=== PATIENT | male | born 1960 | race American Indian/Alaskan Native ===

== ENCOUNTER 2020-12-17 13:40 | Inpatient (IN) | payer OTHER ==
[2020-12-17] MEDS ORDERED: SODIUM CHLORIDE 0.9% 1000 ML 1,000 ML IV ONE ×2 (14:29)
[2020-12-17] MEDS ORDERED: ONDANSETRON 4 MG/2 ML INJ IV ONE (14:32)
[2020-12-17] MEDS ORDERED: ONDANSETRON 4 MG/2 ML INJ ONE (14:33)
[2020-12-17] MEDS ORDERED: PANTOPRAZOLE 40 MG INJ IV ONE (14:42)
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
[2020-12-17] MEDS: PANTOPRAZOLE 80 MG in SODIUM CHLORIDE 0.9% 100 ML IV SCH (15:00)
[2020-12-17 15:10] LABS: INR 1.01 (0.87-1.13)
[2020-12-17 15:11] LABS: Partial Thromboplastin Time 24.7 Sec. (24.2-36.6)
[2020-12-17 15:17] LABS: Alanine Aminotransferase 7 units/L (7-56); Albumin 3.1 g/dL (3.9-5); BUN/Creatinine Ratio 29; Blood Urea Nitrogen 20 mg/dL (9-20); Hemolysis Index 0
[2020-12-17 15:19] LABS: Mean Corpuscular HGB Conc 30 % (32-34); Mean Corpuscular Volume 72 fl (84-94); Platelet Count 355 K/mm3 (140-440); Red Blood Count 1.41 M/mm3 (3.65-5.03)
[2020-12-17 15:21] LABS: Hemoglobin 3.1 gm/dl (11.8-15.2)
[2020-12-17 15:22] LABS: Hematocrit 10.1 % (35.5-45.6)
[2020-12-17] MEDS ORDERED: SODIUM CHLORIDE 0.9% 500 ML 500 ML IV ONE (15:45)
[2020-12-17 16:39] LABS: Anisocytosis 1+; Hypochromasia 2+; Platelet Estimate Consistent w Auto; Total Cells Counted 100
--- NOTE | 2020-12-17 17:10 | History and Physical Report ---
History of Present Illness Chief complaint: My stools are dark and have been's spitting up blood History of present illness: 60 YO Male with Malnutrition, Nicotine Dependence, GERD presents to ED for evaluation. Patient reports "my stool is dark and I have been spitting up blood". Patient states that he has experienced multiple episodes of hematemesis over the past 3 days as well as dark bloody stools. EMS was notified and upon arrival the patient was found to be in distress and subsequently transported to [facility] for further care and evaluation of the aforementioned symptoms. The patient was seen and evaluated in the emergency department. All lab and imaging studies reviewed. Patient found to be Hemoccult positive. Patient found to have clinical symptoms consistent with gastrointestinal hemorrhage. Patient treated with packed red blood cell transfusion. GI team consulted in ED. Patient pending endoscopic evaluation as per GI team. Patient denies fever, chills, chest pain, palpitation, productive cough, skin rash, recent contact, or known exposure to COVID-19. No prior admission for review. No medication listed at time of admission for reconciliation. Advanced care planning conducted in ED. Past History Past Medical History: GERD, other (See HPI) Past Surgical History: No surgical history, Other (Reviewed) Social history: , smoking. denies: alcohol abuse, prescription drug abuse Family history: hypertension Medications and Allergies Allergies Allergy/AdvReac Type Severity Reaction Status Date / Time No Known Allergies Allergy Unverified 11/15/13 19:15 Home Medications Medication Instructions Recorded Confirmed Last Taken Type HYDROcodone/APAP 5-325 [[place] 1 each PO Q6HR PRN #20 tablet 11/16/13 12/17/20 Unknown Rx 5/325] Promethazine [Phenergan] 25 mg PO Q6H PRN #20 tablet 11/16/13 12/17/20 Unknown Rx Active Meds: Active Medications Pantoprazole Sodium 80 mg/ (Sodium Chloride) 100 mls @ 10 mls/hr IV DIRECT PETER Review of Systems Constitutional: no weight loss, no weight gain, no chills, no night sweats Ears, nose, mouth and throat: no ear pain, no tinnitis, no nose pain, no nasal discharge Cardiovascular: no chest pain, no edema, no lightheadedness, no shortness of breath Respiratory: no cough, no excessive sputum Gastrointestinal: hematemesis, melena, no abdominal pain, no vomiting, no diarrhea, no change in bowel habits, no early satiety Genitourinary Male: no hematuria, no flank pain, no discharge, no urinary frequency, no urinary hesitancy Rectal: no pain, no incontinence, no bleeding Musculoskeletal: no neck stiffness, no shooting arm pain, no arm numbness/tingling, no shooting leg pain, no leg numbness/tingling Integumentary: no rash, no sores, no boils Neurological: no head injury, no numbness, no seizures Psychiatric: no anxiety, no sleep disturbances, no insomnia, no change in appetite, no change in libido Endocrine: no cold intolerance, no polyphagia, no excessive thirst, no polyuria, no nocturia, no excessive sweating Hematologic/Lymphatic: no easy bruising, no easy bleeding Allergic/Immunologic: no urticaria, no allergic rhinitis, no wheezing Exam - Constitutional Vitals: Temp Pulse Resp BP Pulse Ox 99.5 F 86 15 98/44 94 12/17/20 13:44 12/17/20 16:45 12/17/20 16:45 12/17/20 16:45 12/17/20 15:32 General appearance: Present: mild distress - EENT Eyes: Present: PERRL ENT: hearing intact, clear oral mucosa, other (Conjunctival pallor) - Neck Neck: Present: supple, normal ROM - Respiratory Respiratory effort: normal Respiratory: bilateral: CTA - Cardiovascular Heart Sounds: Present: S1 & S2. Absent: rub, click - Extremities Extremities: pulses symmetrical, No edema Peripheral Pulses: within normal limits - Abdominal General gastrointestinal: Present: soft, non-tender, non-distended, normal bowel sounds Male genitourinary: Present: normal - Integumentary Integumentary: Present: clear, warm, dry - Musculoskeletal Musculoskeletal: gait normal, strength equal bilaterally - Psychiatric Psychiatric: appropriate mood/affect, intact judgment & insight - Neurologic Neurologic: CNII-XII intact, moves all extremities Results - Labs CBC & Chem 7: 12/17/20 14:38 12/17/20 14:38 Labs: Abnormal lab results 12/17/20 12/17/20 12/17/20 Range/Units 14:38 14:38 14:38 WBC 13.0 H (4.5-11.0) K/mm3 RBC 1.41 L (3.65-5.03) M/mm3 Hgb 3.1 L* (11.8-15.2) gm/dl Hct 10.1 L* (35.5-45.6) % MCV 72 L (84-94) fl MCH 22 L (28-32) pg MCHC 30 L (32-34) % RDW 20.0 H (13.2-15.2) % Seg Neuts % (Manual) 83.0 H (40.0-70.0) % Seg Neutrophils # Man 10.8 H (1.8-7.7) K/mm3 Chloride 110.5 H (98-107) mmol/L Carbon Dioxide 20 L (22-30) mmol/L Creatinine 0.7 L (0.8-1.3) mg/dL Glucose 131 H (75-100) mg/dL Calcium 8.0 L (8.4-10.2) mg/dL Total Protein 5.2 L (6.3-8.2) g/dL Albumin 3.1 L (3.9-5) g/dL Crossmatch See Detail Assessment and Plan - Patient Problems (1) Acute GI hemorrhage Current Visit: Yes Status: Acute Plan to address problem: GI bleed protocol: GI team consulted, patient is pending endoscopic evaluation as per GI team, IV PPI therapy, blood transfusion, repeat CBC in a.m. (2) Symptomatic anemia Current Visit: Yes Status: Acute Plan to address problem: Blood cell transfusion, repeat CBC in a.m. (3) Malnutrition Current Visit: Yes Status: Acute Qualifiers: Protein-calorie malnutrition severity: severe Plan to address problem: Dietary supplementation, increase protein intake (4) DVT prophylaxis Current Visit: Yes Status: Acute Plan to address problem: SCD bilateral lower extremities while in bed, hold anticoagulation for now due to active GI bleed (5) Advance care planning Current Visit: Yes Status: Acute Plan to address problem: Disease education conducted, care plan discussed, diagnoses discussed, prognosis discussed, patient is full code, patient knowledges understanding and agreement with care plan. +30 minutes.
[2020-12-17] MEDS ORDERED: oxyCODONE /ACETAMINOPHEN 5-325MG TAB PO PRN (17:12)
[2020-12-17] MEDS ORDERED: HYDROmorphone 1 MG/1 ML INJ IV PRN (17:12)
[2020-12-17] MEDS ORDERED: ACETAMINOPHEN 325 MG TAB PO PRN (17:12)
--- NOTE | 2020-12-17 18:37 | Gastroenterology Consultation ---
History of Present Illness - Reason for Consult Consult date: 12/17/20 GI Bleed Requesting physician: NGHIA AGUILERA - History of Present Illness Is a pleasant 60-year-old gentleman who presents with GI bleed The patient reports for the last 2 days having burgundy stool and dark red hematemesis He reports that it was initially associated with severe mid to lower abdominal pain which was sharp and cramping in nature nonradiating gradually improving associated with hematochezia and hematemesis Patient reports his bleeding is also associated with lightheadedness and orthostasis, he said especially yesterday when he tried to get up he almost passed out from dizziness He is not sure, he thinks this might of happened to him once about 10 years ago where he was bleeding from both ends he does not recall what the source was He denies NSAIDs or blood thinners just taking a couple of Tylenol Past History Past Medical History: No medical history Past Surgical History: No surgical history Social history: no significant social history Family history: no significant family history Medications and Allergies Allergies Allergy/AdvReac Type Severity Reaction Status Date / Time No Known Allergies Allergy Unverified 11/15/13 19:15 Home Medications Medication Instructions Recorded Confirmed Last Taken Type HYDROcodone/APAP 5-325 [[place] 1 each PO Q6HR PRN #20 tablet 11/16/13 12/17/20 Unknown Rx 5/325] Promethazine [Phenergan] 25 mg PO Q6H PRN #20 tablet 11/16/13 12/17/20 Unknown Rx Active Meds: Active Medications Acetaminophen (Acetaminophen 325 Mg Tab) 650 mg PO Q6H PRN PRN Reason: Pain MILD(1-3)/Fever >100.5/ELENA Hydromorphone HCl (Hydromorphone 1 Mg/1 Ml Inj) 0.5 mg IV Q23H PRN PRN Reason: Pain , Severe (7-10) Pantoprazole Sodium 80 mg/ (Sodium Chloride) 100 mls @ 10 mls/hr IV DIRECT PETER Sodium Chloride (Nacl 0.9% 1000 Ml) 1,000 mls @ 75 mls/hr IV DIRECT PETER Oxycodone/Acetaminophen (Oxycodone /Acetaminophen 5-325mg Tab) 1 tab PO Q16H PRN PRN Reason: Pain, Moderate (4-6) Sodium Chloride (Sodium Chloride 0.9% 10 Ml Flush Syringe) 10 ml IV BID PETER Sodium Chloride (Sodium Chloride 0.9% 10 Ml Flush Syringe) 10 ml IV PRN PRN PRN Reason: LINE FLUSH Review of Systems - Review of Systems All systems: negative (10 Systems reviewed and negative except as mentioned above in the history of present illness) Exam - Constitutional Vital Signs: Temp Pulse Resp BP Pulse Ox 99.5 F 74 14 112/56 94 12/17/20 13:44 12/17/20 17:45 12/17/20 17:45 12/17/20 17:45 12/17/20 15:32 General appearance: no acute distress - EENT Eyes: EOM intact ENT: hearing intact - Neck Neck: supple - Respiratory Respiratory effort: normal - Cardiovascular Rhythm: regular - Gastrointestinal General gastrointestinal: Present: soft, non-tender - Integumentary Integumentary: Present: dry - Musculoskeletal Musculoskeletal: normal - Neurologic Neurological: alert and oriented x3 - Psychiatric Psychiatric: appropriate mood/affect - Labs CBC & Chem 7: 12/17/20 14:38 12/17/20 14:38 Lab Results: Laboratory Results - last 24 hr 12/17/20 12/17/20 12/17/20 14:38 14:38 14:38 WBC 13.0 H RBC 1.41 L Hgb 3.1 L* Hct 10.1 L* MCV 72 L MCH 22 L MCHC 30 L RDW 20.0 H Plt Count 355 Add Manual Diff Complete Total Counted 100 Seg Neuts % (Manual) 83.0 H Lymphocytes % (Manual) 17.0 Nucleated RBC % Not Reportable Seg Neutrophils # Man 10.8 H Band Neutrophils # 0.0 Lymphocytes # (Manual) 2.2 Abs React Lymphs (Man) 0.0 Monocytes # (Manual) 0.0 Eosinophils # (Manual) 0.0 Basophils # (Manual) 0.0 Metamyelocytes # 0.0 Myelocytes # 0.0 Promyelocytes # 0.0 Blast Cells # 0.0 WBC Morphology Not Reportable Hypersegmented Neuts Not Reportable Hyposegmented Neuts Not Reportable Hypogranular Neuts Not Reportable Smudge Cells Not Reportable Toxic Granulation Not Reportable Toxic Vacuolation Not Reportable Dohle Bodies Not Reportable Pelger-Huet Anomaly Not Reportable Lenny Rods Not Reportable Platelet Estimate Consistent w auto Clumped Platelets Not Reportable Plt Clumps, EDTA Not Reportable Large Platelets Not Reportable Giant Platelets Not Reportable Platelet Satelliting Not Reportable Plt Morphology Comment Not Reportable RBC Morphology Not Reportable Dimorphic RBCs Not Reportable Polychromasia Not Reportable Hypochromasia 2+ Poikilocytosis Not Reportable Anisocytosis 1+ Microcytosis Not Reportable Macrocytosis Not Reportable Spherocytes Not Reportable Pappenheimer Bodies Not Reportable Sickle Cells Not Reportable Target Cells Not Reportable Tear Drop Cells Not Reportable Ovalocytes Not Reportable Helmet Cells Not Reportable Ernandez-[place] Bodies Not Reportable [place] Rings Not Reportable [place] Cells Not Reportable Bite Cells Not Reportable Crenated Cell Not Reportable Elliptocytes Not Reportable Acanthocytes (Spur) Not Reportable Rouleaux Not Reportable Hemoglobin C Crystals Not Reportable Schistocytes Not Reportable Malaria parasites Not Reportable Familia Bodies Not Reportable Hem Pathologist Commnt No PT 13.8 INR 1.01 APTT 24.7 Sodium 144 Potassium 4.0 Chloride 110.5 H Carbon Dioxide 20 L Anion Gap 18 BUN 20 Creatinine 0.7 L Estimated GFR > 60 BUN/Creatinine Ratio 29 Glucose 131 H Calcium 8.0 L Total Bilirubin 0.20 AST 9 ALT 7 Alkaline Phosphatase 47 Total Protein 5.2 L Albumin 3.1 L Albumin/Globulin Ratio 1.5 Lipase Blood Type Antibody Screen Crossmatch 12/17/20 12/17/20 14:38 14:38 WBC RBC Hgb Hct MCV MCH MCHC RDW Plt Count Add Manual Diff Total Counted Seg Neuts % (Manual) Lymphocytes % (Manual) Nucleated RBC % Seg Neutrophils # Man Band Neutrophils # Lymphocytes # (Manual) Abs React Lymphs (Man) Monocytes # (Manual) Eosinophils # (Manual) Basophils # (Manual) Metamyelocytes # Myelocytes # Promyelocytes # Blast Cells # WBC Morphology Hypersegmented Neuts Hyposegmented Neuts Hypogranular Neuts Smudge Cells Toxic Granulation Toxic Vacuolation Dohle Bodies Pelger-Huet Anomaly Lenny Rods Platelet Estimate Clumped Platelets Plt Clumps, EDTA Large Platelets Giant Platelets Platelet Satelliting Plt Morphology Comment RBC Morphology Dimorphic RBCs Polychromasia Hypochromasia Poikilocytosis Anisocytosis Microcytosis Macrocytosis Spherocytes Pappenheimer Bodies Sickle Cells Target Cells Tear Drop Cells Ovalocytes Helmet Cells Ernandez-[place] Bodies [place] Rings [place] Cells Bite Cells Crenated Cell Elliptocytes Acanthocytes (Spur) Rouleaux Hemoglobin C Crystals Schistocytes Malaria parasites Familia Bodies Hem Pathologist Commnt PT INR APTT Sodium Potassium Chloride Carbon Dioxide Anion Gap BUN Creatinine Estimated GFR BUN/Creatinine Ratio Glucose Calcium Total Bilirubin AST ALT Alkaline Phosphatase Total Protein Albumin Albumin/Globulin Ratio Lipase 14 Blood Type O POSITIVE Antibody Screen Negative Crossmatch See Detail Assessment and Plan Patient's presentation consistent with acute upper GI bleed such as from peptic ulcer disease, AVM, Dieulafoy lesion, malignancy, etc. Patient requires resuscitation with PRBC and fluids. Endoscopy team contacted and he is scheduled for EGD 7:30 AM Please transfuse 3 units of PRBC, check a posttransfusion CBC and transfuse to a goal hgb of 7 - Patient Problems (1) Acute GI hemorrhage Current Visit: Yes Status: Acute (2) Hematemesis Current Visit: Yes Status: Acute (3) Hematochezia Current Visit: Yes Status: Acute (4) Orthostatic hypotension Current Visit: Yes Status: Acute (5) GI bleed Current Visit: Yes Status: Acute
[2020-12-17] MEDS: SODIUM CHLORIDE 0.9% 1000 ML 1,000 ML IV SCH (21:00)
[2020-12-18 04:32] LABS: Mean Corpuscular HGB Conc 33 % (32-34); Mean Corpuscular Volume 80 fl (84-94); Platelet Count 292 K/mm3 (140-440); Red Blood Count 2.05 M/mm3 (3.65-5.03)
[2020-12-18 04:37] LABS: Red Cell Distribution Width 22.7 % (13.2-15.2)
[2020-12-18 04:38] LABS: Hematocrit 16.5 % (35.5-45.6); Hemoglobin 5.4 gm/dl (11.8-15.2)
[2020-12-18] MEDS ORDERED: SODIUM CHLORIDE 0.9% 500 ML 500 ML IV ONE (05:06)
[2020-12-18 05:48] LABS: Total Cells Counted 100
[2020-12-18 05:49] LABS: Anisocytosis 1+
[2020-12-18 05:50] LABS: Hypochromasia 2+; Platelet Estimate Consistent w Auto
[2020-12-18] MEDS ORDERED: GLUCAGON (HUMAN RECOMBINANT) 1 MG/ML INJ ONE (07:27)
[2020-12-18] MEDS ORDERED: EPINEPHrine 1 MG/10 ML SYRINGE ONE (07:27)
[2020-12-18] MEDS ORDERED: propofoL 200 MG/20 ML VIAL IV ONE ×3 (07:31)
--- NOTE | 2020-12-18 08:07 | Anesthesia Day of Surgery ---
Anesthesia Day of Surgery - Day of Surgery Patient Examined: Yes Patient H&P Reviewed: Yes Patient is NPO: Yes
--- NOTE | 2020-12-18 08:07 | Anesthesia Consultation ---
Anesthesia Consult and Med Hx Date of service: 12/18/20 - Airway Anesthetic Teeth Evaluation: Poor (unsure about loose teeth) ROM Head & Neck: Adequate Mental/Hyoid Distance: Adequate Mallampati Class: Class II Intubation Access Assessment: Probably Good - Pre-Operative Health Status ASA Pre-Surgery Classification: ASA3 Proposed Anesthetic Plan: MAC - Pulmonary Hx Smoking: Yes SOB: Yes (prior to admission 2/2 anemia; improved with transfusion) - Cardiovascular System Hx Hypertension: No - Central Nervous System CVA: No - Endocrine Hx Renal Disease: No Hx Liver Disease: No Hx Insulin Dependent Diabetes: No Hx Non-Insulin Dependent Diabetes: No Hx Thyroid Disease: No - Hematic Hx Anemia: Yes (severe anemia 2/2 GI bleed s/p 4u pRBCs last 24hrs) - Other Systems Hx Obesity: No - Additional Comments Anesthesia Medical History Comments: No hx anesthetic complications.
--- NOTE | 2020-12-18 08:28 | Operative Report ---
Operative Report Operative Report: DOS: 12/18/20 SURGEON: Kingsley Golden MD EGD WITH BIOPSY REPORT PREOPERATIVE DIAGNOSIS and POSTOPERATIVE DIAGNOSIS: Upper GI bleed ESTIMATED BLOOD LOSS: Minimal DESCRIPTION OF PROCEDURE: A high-resolution EGD scope was passed through the oropharynx, esophagus, stomach, and second portion of duodenum. The scope was carefully withdrawn. Retroflexion was performed in the stomach. At the end of the procedure, the scope was cleaned using normal technique. Vital signs monitored continuously throughout. SEDATION: Provided by Anesthesiology Services. COMPLICATIONS: None. FINDINGS: * Normal second portion of the duodenum * Single clean-based ulcer in the first portion of the duodenum with no high risk stigmata. There was a single pigmented spot but no active bleeding no visible vessel, therefore endoscopic intervention was not indicated * Mild erosive gastritis of the gastric antrum as well as nodularity and granularity of the gastric body. Biopsies were taken to rule out H. Pylori infection using cold forceps. A total of 5 biopsies were taken, 2 from the antrum, 1 from the incisura, 2 from the body. * 2 cm hiatal hernia * Within the hiatal hernia there was inflammation likely from patient's retching during the procedure, no active bleeding * GE junction located at 40 cm from incisors * White nummular lesions in the mid esophagus concerning for possible Melisa esophagitis. Cold forceps used to obtain biopsies to rule out Melisa * Remainder of exam unremarkable RECOMMENDATIONS: * May start patient on a clear liquid diet and advance to pured consistency if tolerated, and may advance to mechanical soft tomorrow if patient does well, would not advance to regular diet for 1 week * Complete 72 hours of PPI drip, so that would complete Friday * Follow-up biopsy results * Monitor hemoglobin every 12 hours and if remains stable for 1 day can switch to monitoring every 24 hours * Transfuse for hemoglobin below 7
--- NOTE | 2020-12-18 09:09 | Post Anesthesia Evaluation ---
- Post Anesthesia Evaluation Patient Participated: Yes Airway Patent: Yes Stable Respiratory Function: Yes Nausea/Vomiting: No Temp > 96.8F: Yes Pain Manageable: Yes Adequeate Hydration: Yes Anesthesia Complications: No
[2020-12-18 09:59] LABS: Hematocrit 23.5 % (35.5-45.6); Hemoglobin 7.7 gm/dl (11.8-15.2)
--- NOTE | 2020-12-18 10:26 | Progress Note ---
Assessment and Plan Assessment and plan: Acute GI bleed Hematemesis Hematochezia Orthostatic hypotension 12/18/2020. Patient is s/p 4 units of PRBCs. Hemoglobin 3.1>5.4>7.7. Patient underwent EGD which revealed Single clean-based ulcer in the first portion of the duodenum with no high risk stigmata. There was a single pigmented spot but no active bleeding no visible vessel, therefore endoscopic intervention was not indicated. Mild erosive gastritis of the gastric antrum as well as nodularity and granularity of the gastric body. Biopsies were taken to rule out H. Pylori infection using cold forceps. A total of 5 biopsies were taken, 2 from the antrum, 1 from the incisura, 2 from the body. Patient will be started on clear liquid diet and advance to pured consistency if tolerated. Also, may advance to mechanical soft tomorrow if patient does well, would not advance to regular diet for 1 week. Continue PPI drip for a total of 72 hours(Friday). Continue to monitor hemoglobin every 12 hours. Transfuse for hemoglobin less than 7 History Interval history: No new issues overnight. Hospitalist Physical - Constitutional Vitals: Temp Pulse Resp BP Pulse Ox 98 F 66 16 97/49 100 12/18/20 08:00 12/18/20 08:19 12/18/20 08:19 12/18/20 08:19 12/18/20 08:19 General appearance: Present: mild distress - EENT Eyes: Present: PERRL, EOM intact ENT: hearing intact, clear oral mucosa, dentition normal - Neck Neck: Present: supple, normal ROM - Respiratory Respiratory effort: normal Respiratory: bilateral: CTA - Cardiovascular Rhythm: regular Heart Sounds: Present: S1 & S2. Absent: gallop, rub - Extremities Extremities: no ischemia, No edema, Full ROM - Abdominal General gastrointestinal: soft, non-tender, non-distended, normal bowel sounds - Integumentary Integumentary: Present: clear, warm, dry - Neurologic Neurologic: CNII-XII intact, moves all extremities Results - Labs CBC & Chem 7: 12/18/20 09:40 12/17/20 14:38 Labs: Laboratory Last Values WBC 9.9 K/mm3 (4.5-11.0) 12/18/20 04:01 RBC 2.05 M/mm3 (3.65-5.03) L 12/18/20 04:01 Hgb 7.7 gm/dl (11.8-15.2) L 12/18/20 09:40 Hct 23.5 % (35.5-45.6) L D 12/18/20 09:40 MCV 80 fl (84-94) L 12/18/20 04:01 MCH 26 pg (28-32) L 12/18/20 04:01 MCHC 33 % (32-34) 12/18/20 04:01 RDW 22.7 % (13.2-15.2) H 12/18/20 04:01 Plt Count 292 K/mm3 (140-440) 12/18/20 04:01 Add Manual Diff Complete 12/18/20 04:01 Total Counted 100 12/18/20 04:01 Seg Neuts % (Manual) 92.0 % (40.0-70.0) H 12/18/20 04:01 Lymphocytes % (Manual) 8.0 % (13.4-35.0) L 12/18/20 04:01 Nucleated RBC % Not Reportable 12/18/20 04:01 Seg Neutrophils # Man 9.1 K/mm3 (1.8-7.7) H 12/18/20 04:01 Band Neutrophils # 0.0 K/mm3 12/18/20 04:01 Lymphocytes # (Manual) 0.8 K/mm3 (1.2-5.4) L 12/18/20 04:01 Abs React Lymphs (Man) 0.0 K/mm3 12/18/20 04:01 Monocytes # (Manual) 0.0 K/mm3 (0.0-0.8) 12/18/20 04:01 Eosinophils # (Manual) 0.0 K/mm3 (0.0-0.4) 12/18/20 04:01 Basophils # (Manual) 0.0 K/mm3 (0.0-0.1) 12/18/20 04:01 Metamyelocytes # 0.0 K/mm3 12/18/20 04:01 Myelocytes # 0.0 K/mm3 12/18/20 04:01 Promyelocytes # 0.0 K/mm3 12/18/20 04:01 Blast Cells # 0.0 K/mm3 12/18/20 04:01 WBC Morphology Not Reportable 12/18/20 04:01 Hypersegmented Neuts Not Reportable 12/18/20 04:01 Hyposegmented Neuts Not Reportable 12/18/20 04:01 Hypogranular Neuts Not Reportable 12/18/20 04:01 Smudge Cells Not Reportable 12/18/20 04:01 Toxic Granulation Not Reportable 12/18/20 04:01 Toxic Vacuolation Not Reportable 12/18/20 04:01 Dohle Bodies Not Reportable 12/18/20 04:01 Pelger-Huet Anomaly Not Reportable 12/18/20 04:01 Lenny Rods Not Reportable 12/18/20 04:01 Platelet Estimate Consistent w auto 12/18/20 04:01 Clumped Platelets Not Reportable 12/18/20 04:01 Plt Clumps, EDTA Not Reportable 12/18/20 04:01 Large Platelets Not Reportable 12/18/20 04:01 Giant Platelets Not Reportable 12/18/20 04:01 Platelet Satelliting Not Reportable 12/18/20 04:01 Plt Morphology Comment Not Reportable 12/18/20 04:01 RBC Morphology Not Reportable 12/18/20 04:01 Dimorphic RBCs Not Reportable 12/18/20 04:01 Polychromasia Not Reportable 12/18/20 04:01 Hypochromasia 2+ 12/18/20 04:01 Poikilocytosis Not Reportable 12/18/20 04:01 Anisocytosis 1+ 12/18/20 04:01 Microcytosis Not Reportable 12/18/20 04:01 Macrocytosis Not Reportable 12/18/20 04:01 Spherocytes Not Reportable 12/18/20 04:01 Pappenheimer Bodies Not Reportable 12/18/20 04:01 Sickle Cells Not Reportable 12/18/20 04:01 Target Cells Not Reportable 12/18/20 04:01 Tear Drop Cells Not Reportable 12/18/20 04:01 Ovalocytes Not Reportable 12/18/20 04:01 Helmet Cells Not Reportable 12/18/20 04:01 Ernandez-[place] Bodies Not Reportable 12/18/20 04:01 [place] Rings Not Reportable 12/18/20 04:01 [place] Cells Not Reportable 12/18/20 04:01 Bite Cells Not Reportable 12/18/20 04:01 Crenated Cell Not Reportable 12/18/20 04:01 Elliptocytes Not Reportable 12/18/20 04:01 Acanthocytes (Spur) Not Reportable 12/18/20 04:01 Rouleaux Not Reportable 12/18/20 04:01 Hemoglobin C Crystals Not Reportable 12/18/20 04:01 Schistocytes Not Reportable 12/18/20 04:01 Malaria parasites Not Reportable 12/18/20 04:01 Familia Bodies Not Reportable 12/18/20 04:01 Hem Pathologist Commnt No 12/18/20 04:01 PT 13.8 Sec. (12.2-14.9) 12/17/20 14:38 INR 1.01 (0.87-1.13) 12/17/20 14:38 APTT 24.7 Sec. (24.2-36.6) 12/17/20 14:38 Sodium 144 mmol/L (137-145) 12/17/20 14:38 Potassium 4.0 mmol/L (3.6-5.0) 12/17/20 14:38 Chloride 110.5 mmol/L (98-107) H 12/17/20 14:38 Carbon Dioxide 20 mmol/L (22-30) L 12/17/20 14:38 Anion Gap 18 mmol/L 12/17/20 14:38 BUN 20 mg/dL (9-20) 12/17/20 14:38 Creatinine 0.7 mg/dL (0.8-1.3) L 12/17/20 14:38 Estimated GFR > 60 ml/min 12/17/20 14:38 BUN/Creatinine Ratio 29 % 12/17/20 14:38 Glucose 131 mg/dL (75-100) H 12/17/20 14:38 Calcium 8.0 mg/dL (8.4-10.2) L 12/17/20 14:38 Total Bilirubin 0.20 mg/dL (0.1-1.2) 12/17/20 14:38 AST 9 units/L (5-40) 12/17/20 14:38 ALT 7 units/L (7-56) 12/17/20 14:38 Alkaline Phosphatase 47 units/L (35-129) 12/17/20 14:38 Total Protein 5.2 g/dL (6.3-8.2) L 12/17/20 14:38 Albumin 3.1 g/dL (3.9-5) L 12/17/20 14:38 Albumin/Globulin Ratio 1.5 % 12/17/20 14:38 Lipase 14 units/L (13-60) 12/17/20 14:38 Blood Type O POSITIVE 12/17/20 14:38 Antibody Screen Negative 12/17/20 14:38 Crossmatch See Detail 12/17/20 14:38 Microbiology: Microbiology 12/17/20 14:40 Stool Stool Occult Blood (AIME) - Final Active Medications - Current Medications Current Medications: Generic Name Dose Route Start Last Admin Trade Name Freq PRN Reason Stop Dose Admin Acetaminophen 650 mg 12/17/20 17:12 Acetaminophen 325 Mg Tab PO Q6H PRN Pain MILD(1-3)/Fever >100.5/ELENA Hydromorphone HCl 0.5 mg 12/17/20 17:12 Hydromorphone 1 Mg/1 Ml Inj IV Q23H PRN Pain , Severe (7-10) Pantoprazole Sodium 80 mg/ 100 mls @ 10 mls/hr 12/17/20 15:00 12/17/20 15:00 Sodium Chloride IV 8 mg/hr DIRECT PETER 10 mls/hr Administration 8 MG/HR Sodium Chloride 1,000 mls @ 75 mls/hr 12/17/20 17:15 12/17/20 21:00 Nacl 0.9% 1000 Ml IV 75 mls/hr DIRECT PETER Administration Oxycodone/Acetaminophen 1 tab 12/17/20 17:12 Oxycodone /Acetaminophen 5-325mg Tab PO Q16H PRN Pain, Moderate (4-6) Sodium Chloride 10 ml 12/17/20 22:00 12/17/20 22:00 Sodium Chloride 0.9% 10 Ml Flush Syringe IV 10 ml BID PETER Administration Sodium Chloride 10 ml 12/17/20 17:12 Sodium Chloride 0.9% 10 Ml Flush Syringe IV PRN PRN LINE FLUSH
[2020-12-18] MEDS: PANTOPRAZOLE 80 MG in SODIUM CHLORIDE 0.9% 100 ML IV SCH (13:10)
[2020-12-18 21:04] LABS: Hematocrit 21.7 % (35.5-45.6); Hemoglobin 7.2 gm/dl (11.8-15.2)
[2020-12-19 05:33] LABS: Basophils % (Auto) 0.3 % (0.0-1.8); Eosinophils % (Auto) 0.4 % (0.0-4.3); Hemoglobin 6.7 gm/dl (11.8-15.2); Lymphocytes # (Auto) 1.1 K/mm3 (1.2-5.4); Lymphocytes % (Auto) 16.5 % (13.4-35.0); Mean Corpuscular HGB Conc 34 % (32-34); Mean Corpuscular Volume 81 fl (84-94); Monocytes # (Auto) 0.6 K/mm3 (0.0-0.8); Monocytes % (Auto) 9.1 % (0.0-7.3); Platelet Count 235 K/mm3 (140-440); Red Blood Count 2.46 M/mm3 (3.65-5.03)
[2020-12-19 05:40] LABS: Blood Urea Nitrogen 8 mg/dL (9-20); Calcium 7.9 mg/dL (8.4-10.2); Hemolysis Index 0
[2020-12-19 05:47] LABS: BUN/Creatinine Ratio 11
[2020-12-19] MEDS: SODIUM CHLORIDE 0.9% 1000 ML 1,000 ML IV SCH (06:27)
--- NOTE | 2020-12-19 08:14 | Gastroenterology Progress Note ---
Assessment and Plan There is mild downtrending of hemoglobin, of note given this patient's significant bleed and amount of blood transfused his current hemoglobin level is within expected limits and likely does not represent a re-bleed Recommend transfusion of a 4th unit (he already received 3 yesterday, so one more today) of PRBCs for goal hemoglobin 7 may advance to mechanical soft, would not advance to regular diet for 1 week * Complete 72 hours of PPI drip, so that would complete Friday * Follow-up biopsy results * Monitor hemoglobin every 24 hours * If patient is stable tomorrow and no more blood loss can DC tomorrow with close outpatient followup with me and Rx for pantoprazole 40mg twice daily - Patient Problems (1) Acute GI hemorrhage Current Visit: Yes Status: Acute (2) Hematemesis Current Visit: Yes Status: Acute (3) Hematochezia Current Visit: Yes Status: Acute (4) Orthostatic hypotension Current Visit: Yes Status: Acute (5) GI bleed Current Visit: Yes Status: Acute Subjective Date of service: 12/19/20 Principal diagnosis: GI Bleed Interval history: Patient denies any significant bleeding overnight, reports minimal abdominal discomfort, overall feeling ok EGD yesterday: FINDINGS: * Normal second portion of the duodenum * Single clean-based ulcer in the first portion of the duodenum with no high risk stigmata. There was a single pigmented spot but no active bleeding no visible vessel, therefore endoscopic intervention was not indicated * Mild erosive gastritis of the gastric antrum as well as nodularity and granularity of the gastric body. Biopsies were taken to rule out H. Pylori infection using cold forceps. A total of 5 biopsies were taken, 2 from the antrum, 1 from the incisura, 2 from the body. * 2 cm hiatal hernia * Within the hiatal hernia there was inflammation likely from patient's retching during the procedure, no active bleeding * GE junction located at 40 cm from incisors * White nummular lesions in the mid esophagus concerning for possible Melisa esophagitis. Cold forceps used to obtain biopsies to rule out Melisa * Remainder of exam unremarkable * Transfuse for hemoglobin below 7 Objective - Constitutional Vitals: Temp Pulse Resp BP Pulse Ox 98.6 F 60 13 106/57 100 12/19/20 04:00 12/19/20 07:00 12/19/20 07:00 12/19/20 07:00 12/19/20 07:00 General appearance: no acute distress - EENT ENT: hearing intact - Neck Neck: supple - Respiratory Respiratory effort: normal - Gastrointestinal General gastrointestinal: Present: soft, non-tender - Labs CBC & Chem 7: 12/19/20 04:41 12/19/20 04:41 Labs: Laboratory Results - last 24 hr 12/18/20 12/18/20 12/18/20 09:40 09:48 20:38 WBC RBC Hgb 7.7 L 7.2 L Hct 23.5 L D 21.7 L MCV MCH MCHC RDW Plt Count Lymph % (Auto) [place] % (Auto) Eos % (Auto) Baso % (Auto) Lymph # (Auto) [place] # (Auto) Eos # (Auto) Baso # (Auto) Seg Neutrophils % Seg Neutrophils # Sodium Potassium Chloride Carbon Dioxide Anion Gap BUN Creatinine Estimated GFR BUN/Creatinine Ratio Glucose POC Glucose Calcium Coronavirus (PCR) Negative 12/19/20 12/19/20 12/19/20 04:41 04:41 08:01 WBC 6.4 RBC 2.46 L Hgb 6.7 L Hct 20.0 L MCV 81 L MCH 27 L MCHC 34 RDW 20.0 H Plt Count 235 Lymph % (Auto) 16.5 Brooks % (Auto) 9.1 H Eos % (Auto) 0.4 Baso % (Auto) 0.3 Lymph # (Auto) 1.1 L [place] # (Auto) 0.6 Eos # (Auto) 0.0 Baso # (Auto) 0.0 Seg Neutrophils % 73.7 H Seg Neutrophils # 4.7 Sodium 141 Potassium 3.4 L Chloride 107.6 H Carbon Dioxide 25 Anion Gap 12 BUN 8 L Creatinine 0.7 L Estimated GFR > 60 BUN/Creatinine Ratio 11 Glucose 83 POC Glucose 80 Calcium 7.9 L Coronavirus (PCR)
[2020-12-19] MEDS ORDERED: SODIUM CHLORIDE 0.9% 500 ML 500 ML IV NR (08:31)
--- NOTE | 2020-12-19 09:49 | Progress Note ---
Assessment and Plan Assessment and plan: Acute GI bleed Hematemesis Hematochezia Orthostatic hypotension 12/18/2020. Patient is s/p 4 units of PRBCs. Hemoglobin 3.1>5.4>7.7. Patient underwent EGD which revealed Single clean-based ulcer in the first portion of the duodenum with no high risk stigmata. There was a single pigmented spot but no active bleeding no visible vessel, therefore endoscopic intervention was not indicated. Mild erosive gastritis of the gastric antrum as well as nodularity and granularity of the gastric body. Biopsies were taken to rule out H. Pylori infection using cold forceps. A total of 5 biopsies were taken, 2 from the antrum, 1 from the incisura, 2 from the body. Patient will be started on clear liquid diet and advance to pured consistency if tolerated. Also, may advance to mechanical soft tomorrow if patient does well, would not advance to regular diet for 1 week. Continue PPI drip for a total of 72 hours(Friday). Continue to monitor hemoglobin every 12 hours. Transfuse for hemoglobin less than 7 12/19/2020 Patient with acute GI bleed . s/p EGD revealed duodenal ulcer. He has had 4 Units PRBC but Hgb 6.7 today. Will transfuse 2 Units PRBC more and recheck H/H serially. History Interval history: Feels better Mild abdominal pain Hospitalist Physical - Physical exam Narrative exam: Gen: Not in acute distress, lying in bed HEENT: Normocephalic, atraumatic Lungs: Clear to auscultation Heart: S1 and S2 reg, no murmurs, rubs or gallop Abd:soft, mild tender mid abdomen, non distended, normal bowel sounds Ext: No edema, clubbing or cyanosis Neuro: Awake, alert, oriented X 3, moves all extremities - Constitutional Vitals: Temp Pulse Resp BP Pulse Ox 98.6 F 60 13 106/57 100 12/19/20 04:00 12/19/20 07:00 12/19/20 07:00 12/19/20 07:00 12/19/20 07:00 General appearance: Present: mild distress Results - Labs CBC & Chem 7: 12/19/20 04:41 12/19/20 04:41 Labs: Laboratory Last Values WBC 6.4 K/mm3 (4.5-11.0) 12/19/20 04:41 RBC 2.46 M/mm3 (3.65-5.03) L 12/19/20 04:41 Hgb 6.7 gm/dl (11.8-15.2) L 12/19/20 04:41 Hct 20.0 % (35.5-45.6) L 12/19/20 04:41 MCV 81 fl (84-94) L 12/19/20 04:41 MCH 27 pg (28-32) L 12/19/20 04:41 MCHC 34 % (32-34) 12/19/20 04:41 RDW 20.0 % (13.2-15.2) H 12/19/20 04:41 Plt Count 235 K/mm3 (140-440) 12/19/20 04:41 Lymph % (Auto) 16.5 % (13.4-35.0) 12/19/20 04:41 [place] % (Auto) 9.1 % (0.0-7.3) H 12/19/20 04:41 Eos % (Auto) 0.4 % (0.0-4.3) 12/19/20 04:41 Baso % (Auto) 0.3 % (0.0-1.8) 12/19/20 04:41 Lymph # (Auto) 1.1 K/mm3 (1.2-5.4) L 12/19/20 04:41 [place] # (Auto) 0.6 K/mm3 (0.0-0.8) 12/19/20 04:41 Eos # (Auto) 0.0 K/mm3 (0.0-0.4) 12/19/20 04:41 Baso # (Auto) 0.0 K/mm3 (0.0-0.1) 12/19/20 04:41 Add Manual Diff Complete 12/18/20 04:01 Total Counted 100 12/18/20 04:01 Seg Neutrophils % 73.7 % (40.0-70.0) H 12/19/20 04:41 Seg Neuts % (Manual) 92.0 % (40.0-70.0) H 12/18/20 04:01 Lymphocytes % (Manual) 8.0 % (13.4-35.0) L 12/18/20 04:01 Nucleated RBC % Not Reportable 12/18/20 04:01 Seg Neutrophils # 4.7 K/mm3 (1.8-7.7) 12/19/20 04:41 Seg Neutrophils # Man 9.1 K/mm3 (1.8-7.7) H 12/18/20 04:01 Band Neutrophils # 0.0 K/mm3 12/18/20 04:01 Lymphocytes # (Manual) 0.8 K/mm3 (1.2-5.4) L 12/18/20 04:01 Abs React Lymphs (Man) 0.0 K/mm3 12/18/20 04:01 Monocytes # (Manual) 0.0 K/mm3 (0.0-0.8) 12/18/20 04:01 Eosinophils # (Manual) 0.0 K/mm3 (0.0-0.4) 12/18/20 04:01 Basophils # (Manual) 0.0 K/mm3 (0.0-0.1) 12/18/20 04:01 Metamyelocytes # 0.0 K/mm3 12/18/20 04:01 Myelocytes # 0.0 K/mm3 12/18/20 04:01 Promyelocytes # 0.0 K/mm3 12/18/20 04:01 Blast Cells # 0.0 K/mm3 12/18/20 04:01 WBC Morphology Not Reportable 12/18/20 04:01 Hypersegmented Neuts Not Reportable 12/18/20 04:01 Hyposegmented Neuts Not Reportable 12/18/20 04:01 Hypogranular Neuts Not Reportable 12/18/20 04:01 Smudge Cells Not Reportable 12/18/20 04:01 Toxic Granulation Not Reportable 12/18/20 04:01 Toxic Vacuolation Not Reportable 12/18/20 04:01 Dohle Bodies Not Reportable 12/18/20 04:01 Pelger-Huet Anomaly Not Reportable 12/18/20 04:01 Lenny Rods Not Reportable 12/18/20 04:01 Platelet Estimate Consistent w auto 12/18/20 04:01 Clumped Platelets Not Reportable 12/18/20 04:01 Plt Clumps, EDTA Not Reportable 12/18/20 04:01 Large Platelets Not Reportable 12/18/20 04:01 Giant Platelets Not Reportable 12/18/20 04:01 Platelet Satelliting Not Reportable 12/18/20 04:01 Plt Morphology Comment Not Reportable 12/18/20 04:01 RBC Morphology Not Reportable 12/18/20 04:01 Dimorphic RBCs Not Reportable 12/18/20 04:01 Polychromasia Not Reportable 12/18/20 04:01 Hypochromasia 2+ 12/18/20 04:01 Poikilocytosis Not Reportable 12/18/20 04:01 Anisocytosis 1+ 12/18/20 04:01 Microcytosis Not Reportable 12/18/20 04:01 Macrocytosis Not Reportable 12/18/20 04:01 Spherocytes Not Reportable 12/18/20 04:01 Pappenheimer Bodies Not Reportable 12/18/20 04:01 Sickle Cells Not Reportable 12/18/20 04:01 Target Cells Not Reportable 12/18/20 04:01 Tear Drop Cells Not Reportable 12/18/20 04:01 Ovalocytes Not Reportable 12/18/20 04:01 Helmet Cells Not Reportable 12/18/20 04:01 Ernandez-[place] Bodies Not Reportable 12/18/20 04:01 [place] Rings Not Reportable 12/18/20 04:01 [place] Cells Not Reportable 12/18/20 04:01 Bite Cells Not Reportable 12/18/20 04:01 Crenated Cell Not Reportable 12/18/20 04:01 Elliptocytes Not Reportable 12/18/20 04:01 Acanthocytes (Spur) Not Reportable 12/18/20 04:01 Rouleaux Not Reportable 12/18/20 04:01 Hemoglobin C Crystals Not Reportable 12/18/20 04:01 Schistocytes Not Reportable 12/18/20 04:01 Malaria parasites Not Reportable 12/18/20 04:01 Familia Bodies Not Reportable 12/18/20 04:01 Hem Pathologist Commnt No 12/18/20 04:01 PT 13.8 Sec. (12.2-14.9) 12/17/20 14:38 INR 1.01 (0.87-1.13) 12/17/20 14:38 APTT 24.7 Sec. (24.2-36.6) 12/17/20 14:38 Sodium 141 mmol/L (137-145) 12/19/20 04:41 Potassium 3.4 mmol/L (3.6-5.0) L 12/19/20 04:41 Chloride 107.6 mmol/L (98-107) H 12/19/20 04:41 Carbon Dioxide 25 mmol/L (22-30) 12/19/20 04:41 Anion Gap 12 mmol/L 12/19/20 04:41 BUN 8 mg/dL (9-20) L 12/19/20 04:41 Creatinine 0.7 mg/dL (0.8-1.3) L 12/19/20 04:41 Estimated GFR > 60 ml/min 12/19/20 04:41 BUN/Creatinine Ratio 11 % 12/19/20 04:41 Glucose 83 mg/dL (75-100) 12/19/20 04:41 POC Glucose 80 mg/dL (70-105) 12/19/20 08:01 Calcium 7.9 mg/dL (8.4-10.2) L 12/19/20 04:41 Total Bilirubin 0.20 mg/dL (0.1-1.2) 12/17/20 14:38 AST 9 units/L (5-40) 12/17/20 14:38 ALT 7 units/L (7-56) 12/17/20 14:38 Alkaline Phosphatase 47 units/L (35-129) 12/17/20 14:38 Total Protein 5.2 g/dL (6.3-8.2) L 12/17/20 14:38 Albumin 3.1 g/dL (3.9-5) L 12/17/20 14:38 Albumin/Globulin Ratio 1.5 % 12/17/20 14:38 Lipase 14 units/L (13-60) 12/17/20 14:38 Coronavirus (PCR) Negative (Negative) 12/18/20 09:48 Blood Type O POSITIVE 12/17/20 14:38 Antibody Screen Negative 12/17/20 14:38 Crossmatch See Detail 12/17/20 14:38 [place]/IV: Voiding Method Bedpan Active Medications - Current Medications Current Medications: Generic Name Dose Route Start Last Admin Trade Name Freq PRN Reason Stop Dose Admin Acetaminophen 650 mg 12/17/20 17:12 Acetaminophen 325 Mg Tab PO Q6H PRN Pain MILD(1-3)/Fever >100.5/ELENA Hydromorphone HCl 0.5 mg 12/17/20 17:12 Hydromorphone 1 Mg/1 Ml Inj IV Q23H PRN Pain , Severe (7-10) Pantoprazole Sodium 80 mg/ 100 mls @ 10 mls/hr 12/17/20 15:00 12/19/20 00:00 Sodium Chloride IV 8 mg/hr DIRECT PETER 10 mls/hr Administration 8 MG/HR Sodium Chloride 1,000 mls @ 75 mls/hr 12/17/20 17:15 12/19/20 06:27 Nacl 0.9% 1000 Ml IV 75 mls/hr DIRECT PETER Administration Sodium Chloride 500 mls @ 0 mls/hr 12/19/20 08:31 Nacl 0.9% 500 Ml IV 12/19/20 23:59 ONCE NR As Directed Oxycodone/Acetaminophen 1 tab 12/17/20 17:12 Oxycodone /Acetaminophen 5-325mg Tab PO Q16H PRN Pain, Moderate (4-6) Sodium Chloride 10 ml 12/17/20 22:00 12/19/20 09:32 Sodium Chloride 0.9% 10 Ml Flush Syringe IV 10 ml BID PETER Administration Sodium Chloride 10 ml 12/17/20 17:12 Sodium Chloride 0.9% 10 Ml Flush Syringe IV PRN PRN LINE FLUSH Nutrition/Malnutrition Assess - Dietary Evaluation Nutrition/Malnutrition Findings: Nutrition Notes Start: 12/19/20 08:08 Freq: Status: Active Protocol: Document 12/19/20 08:08 GB (Rec: 12/19/20 08:26 GB [email or web address]) Nutrition Notes Need for Assessment generated from: Low BMI Initial or Follow up Assessment Other Pertinent Diagnosis GI bleed, ulcer duodenum Current Diet Clear Liquids Labs/Tests 12/19: K 3.4, BUN 8, creatinine 0.7, Ca 7.9 Pertinent Medications NaCl Height 6 ft Weight 61.235 kg Mobile Body Weight (kg) 80.90 BMI 18.3 Intake Prior to Admission Fair Weight change and time frame No reported weight loss Weight Status Underweight Subjective/Other Information Per MD progress note 12/18: diet start at clear liquids, advance to puree as tolerated. May advance to mechanical soft if puree tolerated - (in reference to ulcer) PO intake of clears 100% documented 12/18. Percent of energy/protein needs met: Clear liquid diet does not meet 75% of estimated energy needs. Once advanced to pureed, po intake will meet estimated energy needs. Burn Absent Trauma Absent GI Symptoms Diarrhea,Other Food Allergy No Skin Integrity/Comment No complications reported Current % PO Good (75-100%) Minimum of two criteria No #1 Nutrition Diagnosis Inadequate energy intake Comments: BMI: 18.3 Etiology GI bleed As Evidenced by Signs and Symptoms medical findings of Ulcer in duodenum, Clear liquid diet Is patient on ventilator? No Is Patient Ambulatory and/or Out of Bed Yes REE-(Henning-St. Jeor-ambulatory/OOB) [ 1891.955 [id number]] Kcal/Kg value to use for calculation 30 Approximate Energy Requirements Using 1837 kcal/Kg Calculation Used for Recommendations Kcal/kg Additional Notes Protein: 1-1.2 g/kg @61k- 73g Fluids: 1 ml/kcal or per MD Nutrition Intervention Change Diet Order: continue, advance as tolerated Nutrition Support: n/a Add Supplement/Snack (indicate name/kcal ensure clear BID /protein ) Provides kCal: 480 Provides Protein (gm) 16 Goal #1 Diet advancement to pureed by next review Goal #2 weight to maintain within +3% current weight for LOS Follow-Up By: 12/22/20 Additional Comments f/u: diet advancement, weight. Document PO intake of meals.
--- NOTE | 2020-12-19 14:09 | Event Note ---
Date: 12/19/20 called by path that diana positive in eosphagus, starting diflucan 200mg for 14 days
[2020-12-19] MEDS ORDERED: POTASSIUM CHLORIDE 20 MEQ PACKET FEEDTUBE SCH (15:00)
[2020-12-19] MEDS: FLUCONAZOLE 100 MG TAB PO SCH (15:40)
[2020-12-19] MEDS: PANTOPRAZOLE 80 MG in SODIUM CHLORIDE 0.9% 100 ML IV SCH ×2 (17:06)
[2020-12-19 18:31] LABS: Hematocrit 28.7 % (35.5-45.6); Hemoglobin 9.7 gm/dl (11.8-15.2)
[2020-12-19] MEDS ORDERED: SODIUM CHLORIDE 0.9% 1000 ML 1,000 ML ONE (21:38)
[2020-12-19] MEDS ORDERED: SODIUM CHLORIDE 0.9% 1000 ML 1,000 ML IV SCH (22:00)
[2020-12-20] MEDS: PANTOPRAZOLE 80 MG in SODIUM CHLORIDE 0.9% 100 ML IV SCH (03:54)
[2020-12-20 08:01] LABS: Hematocrit 27.8 % (35.5-45.6); Hemoglobin 9.5 gm/dl (11.8-15.2)
[2020-12-20 09:14] VITALS: BP 119/74
[2020-12-20] MEDS: FLUCONAZOLE 100 MG TAB PO SCH (10:18)
--- NOTE | 2020-12-20 10:42 | Discharge Summary ---
Providers - Providers Date of Admission: 12/17/20 17:12 Date of discharge: 12/20/20 Attending physician: MARTIN CHINCHILLA 12/17/20 16:26 Consult to Physician [CONS] Urgent Comment: Consulting Provider: LUIS PATRICK Physician Instructions: Reason For Exam: GI bleed Primary care physician: JUTE BAG SEWER Hospitalization Condition: Fair Disposition: 01 HOME / SELF CARE / HOMELESS Final Discharge Diagnosis (Prints w/discharge instructions): 1.Acute GI bleed. 2.Duodenal ulcer. 3.Erosive gastritis. 4.Nodularity and granularity of gastric body - Discharge Diagnoses (1) Acute GI hemorrhage Status: Acute (2) GI bleed Status: Acute (3) Hematemesis Status: Acute (4) Hematochezia Status: Acute (5) Malnutrition Status: Acute Qualifiers: Protein-calorie malnutrition severity: severe (6) Erosive gastritis with hemorrhage Status: Acute (7) Nodularity of gastric antrum Status: Acute Comment: nodularity and granularity of gastric body Core Measure Documentation - Palliative Care Palliative Care/ Comfort Measures: Not Applicable - Core Measures Any of the following diagnoses?: none Exam - Constitutional Vitals: Temp Pulse Resp BP Pulse Ox 98.4 F 72 13 119/74 100 12/20/20 08:00 12/20/20 09:01 12/20/20 09:01 12/20/20 09:01 12/20/20 09:01 Plan Activity: advance as tolerated Diet: other (Mechanical soft diet, bland) Plan of Treatment: 1.Follow up with PCP in 1 week 2.Follow up with Dr. [place] JAMES in 1 week Follow up with: PRIMARY CARE, [Primary Care Provider] - 3-5 Days Forms: Accompanied Note Prescriptions: Fluconazole [Diflucan TAB] 200 mg PO QDAY 14 Days tablet Pantoprazole [Protonix TAB] 40 mg PO BID #60 tablet
--- NOTE | 2020-12-20 12:06 | Gastroenterology Progress Note ---
Assessment and Plan Hgb stable Can DC with pantoprazole 40mg twice daily, diflucan 200mg daily for 13 more days H Pylori positive, discharge with clarithromycin 500mg PO twice daily and amoxicillin 1gram twice daily for 10 days - Patient Problems (1) Acute GI hemorrhage Current Visit: Yes Status: Acute (2) Hematemesis Current Visit: Yes Status: Acute (3) Hematochezia Current Visit: Yes Status: Acute (4) Orthostatic hypotension Current Visit: Yes Status: Acute (5) GI bleed Current Visit: Yes Status: Acute (6) H. pylori infection Current Visit: Yes Status: Acute Subjective Date of service: 12/20/20 Principal diagnosis: GI Bleed Interval history: Patient denies any significant bleeding overnight, reports continued minimal abdominal discomfort, overall feeling ok I started the diflucan last night due to positive melisa in esophagus. EGD yesterday: FINDINGS: * Normal second portion of the duodenum * Single clean-based ulcer in the first portion of the duodenum with no high risk stigmata. There was a single pigmented spot but no active bleeding no visible vessel, therefore endoscopic intervention was not indicated * Mild erosive gastritis of the gastric antrum as well as nodularity and granularity of the gastric body. Biopsies were taken to rule out H. Pylori infection using cold forceps. A total of 5 biopsies were taken, 2 from the antrum, 1 from the incisura, 2 from the body. * 2 cm hiatal hernia * Within the hiatal hernia there was inflammation likely from patient's retching during the procedure, no active bleeding * GE junction located at 40 cm from incisors * White nummular lesions in the mid esophagus concerning for possible Melisa esophagitis. Cold forceps used to obtain biopsies to rule out Melisa * Remainder of exam unremarkable * Transfuse for hemoglobin below 7 Objective - Constitutional Vitals: Temp Pulse Resp BP Pulse Ox 98.4 F 72 13 119/74 100 12/20/20 08:00 12/20/20 09:01 12/20/20 09:01 12/20/20 09:01 12/20/20 09:01 General appearance: no acute distress - EENT Eyes: EOM intact - Respiratory Respiratory effort: normal - Gastrointestinal General gastrointestinal: Present: soft - Labs CBC & Chem 7: 12/20/20 07:25 12/19/20 04:41 Labs: Laboratory Results - last 24 hr 12/17/20 12/19/20 12/19/20 14:38 17:06 18:01 Hgb 9.7 L D Hct 28.7 L D POC Glucose 83 Blood Type O POSITIVE Antibody Screen Negative Crossmatch See Detail 12/20/20 07:25 Hgb 9.5 L Hct 27.8 L POC Glucose Blood Type Antibody Screen Crossmatch
[2020-12-20] MEDS ORDERED: PANTOPRAZOLE 40 MG TAB PO SCH (22:00)
--- NOTE | 2020-12-21 10:35 | Electrocardiograph Report ---
[facility] Test Date: 2020-12-20 Test Time: 12:38:57 Pat Name: WAI NORWOOD Department: Room: A267 1 Gender: M [employer]: АНДРЕЙ : 1960 Requested By: MARTIN CHINCHILLA Order Number: [id number] Reading MD: Nestor Santiago Measurements Intervals [place] Rate: 61 P: 85 SD: 116 QRS: 78 QRSD: 104 T: 60 QT: 413 QTc: 417 Interpretive Statements Sinus rhythm Atrial premature complex Left ventricular hypertrophy No previous ECG available for comparison Electronically Signed On 12-21-2020 10:34:56 EDT by Nestor Santiago
== END 2020-12-20 13:30 | disposition home or self-care (01) | DRG 377 ==
LOC: ED 13:40 → IMCU 17:12
PROVIDERS: ADMIT Internal Medicine; ATTEND Internal Medicine
PROC: 30233N1 Transfusion of Nonautologous Red Blood Cells into Peripheral Vein, Percutaneous Approach (ICD-10-PCS; principal; 2020-12-17)
PROC: 0DB68ZX Excision of Stomach, Via Natural or Artificial Opening Endoscopic, Diagnostic (ICD-10-PCS; 2020-12-18)
PROC: 0DB58ZX Excision of Esophagus, Via Natural or Artificial Opening Endoscopic, Diagnostic (ICD-10-PCS; 2020-12-18)
DX: K29.71 Gastritis, unspecified, with bleeding (principal); E43 Unspecified severe protein-calorie malnutrition; Z68.1 Body mass index [BMI] 19.9 or less, adult; F17.200 Nicotine dependence, unspecified, uncomplicated; D50.0 Iron deficiency anemia secondary to blood loss (chronic); K21.9 Gastro-esophageal reflux disease without esophagitis; Z82.49 Family history of ischemic heart disease and other diseases of the circulatory system; I95.1 Orthostatic hypotension; K26.9 Duodenal ulcer, unspecified as acute or chronic, without hemorrhage or perforation; Z20.822 Contact with and (suspected) exposure to COVID-19
CPT/HCPCS: 36415; 80048; 80053; 82271; 82962; 83690; 85007; 85014; 85018; 85025; 85610; 85730; 86850; 86900; 86901; 86920; 88305; 88342; 93005; 99406; G0378; C9113; J0171; J1610; J2405; J2704; J7030; J7040; P9016; U0003

== ENCOUNTER 2021-10-02 12:03 | Inpatient (IN) | payer OTHER ==
--- NOTE | 2021-10-02 12:51 | Event Note ---
ED Screening Note ED Screening Note: 61-year-old male presents to the ED complaining of abdominal pain x10. Patient has a history of gallstone. Patient presents states that he has not eaten in the last 10 days. She complains of nausea and vomiting but denies any diarrhea. Patient is alert and oriented x3. No acute distress noted no ill appearance noted. This initial assessment/diagnostic orders/clinical plan/treatment(s) is/are subject to change based on patients health status, clinical progression and re- assessment by fellow clinical providers in the ED. Further treatment and workup at subsequent clinical providers discretion. Patient/guardian urged not to elope from the ED as their condition may be serious if not clinically assessed and managed. Initial orders include:
[2021-10-02 13:37] LABS: Mean Corpuscular HGB Conc 29 % (32-34); Platelet Count 504 K/mm3 (140-440); Red Blood Count 4.13 M/mm3 (3.65-5.03); Red Cell Distribution Width 19.4 % (13.2-15.2)
[2021-10-02 13:45] LABS: Albumin 4.7 g/dL (3.9-5); BUN/Creatinine Ratio 20; Blood Urea Nitrogen 20 mg/dL (9-20); Calcium 9.9 mg/dL (8.4-10.2); Hemolysis Index 0
[2021-10-02 14:12] LABS: Alanine Aminotransferase < 5 units/L (7-56); Bilirubin,Direct < 0.2 mg/dL (0-0.2)
[2021-10-02 14:18] LABS: Hematocrit 27.3 % (35.5-45.6); Hemoglobin 7.9 gm/dl (11.8-15.2); Mean Corpuscular Volume 66 fl (84-94)
--- NOTE | 2021-10-02 16:05 | Cat Scan Report ---
CTA CHEST WITH CONTRAST INDICATION / CLINICAL INFORMATION: rule pe. TECHNIQUE: Axial CT images were obtained through the chest after injection of IV contrast. 3 plane CO P and/or 3D reconstructions were produced. All CT scans at this location are performed using CT dose reduction for ALARA by means of automated exposure control. COMPARISON: None available. FINDINGS: PULMONARY ARTERIES: No pulmonary emboli. THORACIC AORTA: No significant abnormality. HEART: No significant abnormality. CORONARY ARTERY CALCIFICATION: None. MEDIASTINUM / ALEJANDRA: No significant abnormality. PLEURA: No pleural effusion. No pneumothorax. LUNGS: Mild centrilobular emphysema. ADDITIONAL FINDINGS: None. UPPER ABDOMEN: Multiple hepatic cysts. Multiple metallic densities scattered throughout the liver and right upper abdominal wall. There are also metallic densities within the right kidney. SKELETAL STRUCTURES: No significant osseous abnormality. IMPRESSION: 1. No CT evidence for pulmonary embolism. 2. No acute findings. Signer Name: Mode Colon DO Signed: 10/02/2021 4:00 PM Workstation Name: [id number]
[2021-10-02 20:15] LABS: Bilirubin,Urine Negative (Negative); Blood,Urine Negative (Negative); Color,Urine Yellow (Yellow)
[2021-10-02 20:21] LABS: Mucus,Urine FEW /HPF
[2021-10-02 20:56] LABS: RBC,Urine < 1.0 /HPF (0.0-6.0); WBC,Urine < 1.0 /HPF (0.0-6.0)
[2021-10-02] MEDS ORDERED: SODIUM CHLORIDE 0.9% 1000 ML 1,000 ML IV ONE (21:53)
[2021-10-02] MEDS ORDERED: ONDANSETRON 4 MG/2 ML INJ IV ONE (21:53)
[2021-10-03] MEDS ORDERED: fentaNYL 100 MCG/2 ML INJ IV ONE (02:03)
--- NOTE | 2021-10-03 02:08 | Ultrasound Report ---
ULTRASOUND ABDOMEN, LIMITED INDICATION / CLINICAL INFORMATION: RUQ PAIN. COMPARISON: None available. TECHNIQUE: Using transcutaneous protocol multiple grayscale and color Doppler images were captured an d stored of the pancreas, liver, aorta, inferior vena cava, gallbladder, common bile duct, and right kidney. FINDINGS: PANCREAS: The pancreatic head and body are slightly more hypoechoic than expected with regard to echo genicity without obvious ductal dilatation or focal mass. Mild pancreatic edema not excluded. Correla tion with serum lipase recommended. AORTA: Longitudinal images of the aorta demonstrate no significant abnormality. IVC: Longitudinal images of the inferior vena cava demonstrate no significant abnormality. LIVER: The right hepatic lobe measures 15.4 cm in craniocaudal dimension. There are multiple hepatic cysts demonstrated the largest within the left hepatic lobe measures 3.1 x 2.2 x 2.9 cm. Largest with in the right hepatic lobe measures 2.0 x 1.6 x 2.0 cm. Some of these have internal septations. Normal hepatopedal blood flow in the main portal vein. GALLBLADDER: The gallbladder demonstrates dependent cholelithiasis. The gallbladder wall measures 1. 5 mm. Incidental note made of positive Mcbride's sign during image acquisition. BILE DUCTS: No significant abnormality. Common bile duct measures 2.0 mm. RIGHT KIDNEY: No acute findings are suggested to involve the right kidney. FREE FLUID: None. ADDITIONAL FINDINGS: None. IMPRESSION: 1. Cholelithiasis without distinct wall thickening. Nonspecific positive Mcbride sign during image acq uisition. If clinical concern for cholecystitis is present, a DISIDA scan may be useful for further e valuation. 2. Multiple hepatic cysts. 3. Nonspecific hypoechoic appearance of the pancreas. Correlation with serum lipase recommended to ex clude acute pancreatitis. Signer Name: Wayne Armijo II, MD Signed: 10/03/2021 2:03 AM Workstation Name: [id number]
[2021-10-03] MEDS ORDERED: MORPHINE 2 MG/1 ML INJ IV ONE (02:30)
[2021-10-03 04:08] LABS: Mean Corpuscular HGB Conc 29 % (32-34); Platelet Count 458 K/mm3 (140-440); Red Blood Count 3.67 M/mm3 (3.65-5.03); Red Cell Distribution Width 19.4 % (13.2-15.2)
[2021-10-03 04:21] LABS: Hematocrit 24.4 % (35.5-45.6); Hemoglobin 7.1 gm/dl (11.8-15.2); Mean Corpuscular Volume 67 fl (84-94)
[2021-10-03 04:22] LABS: Albumin 4.2 g/dL (3.9-5); BUN/Creatinine Ratio 20; Blood Urea Nitrogen 16 mg/dL (9-20); Calcium 9.4 mg/dL (8.4-10.2); Hemolysis Index 2
[2021-10-03 04:24] LABS: Alanine Aminotransferase < 5 units/L (7-56)
[2021-10-03] MEDS ORDERED: PIPERACILLIN/TAZOBACTAM 3.375 3.375 GM/50 ML BAG IV ONE (04:26)
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
[2021-10-03] MEDS ORDERED: MAGNESIUM HYDROXIDE (MOM) ORAL LIQD UDC PO PRN (07:30)
[2021-10-03] MEDS ORDERED: ACETAMINOPHEN 325 MG TAB PO PRN (07:30)
--- NOTE | 2021-10-03 09:29 | Progress Note ---
Assessment and Plan Assessment and plan: 61-year-old -Surinames[place] male with known history of GI bleed, hypertension, hyperlipidemia, diabetes mellitus, coronary artery disease with stent placement in the past presenting in the emergency room today complaining of abdominal pain. Abdominal pain has been ongoing for the past few weeks but has gotten worse over the last [address] angiogram of the chest shows no acute abnormality. Abdominal ultrasounds reveals cholelithiasis without distinct wall thickening. Nonspecific positive Mcbride sign. Abdominal pain Cholelithiasis Hypertension Diabetes mellitus type 2 History coronary artery disease with stent placement Hyperlipidemia 10/03/2021. We will follow-up HIDA scan. Continue n.p.o. for now. General surgery consultation pending History Interval history: No new issues Hospitalist Physical - Constitutional Vitals: Temp Pulse Resp BP Pulse Ox 99.1 F 95 H 16 125/83 98 10/02/21 12:07 10/02/21 12:07 10/03/21 02:59 10/02/21 12:07 10/02/21 12:07 General appearance: Present: no acute distress, well-nourished - EENT Eyes: Present: PERRL, EOM intact ENT: hearing intact, clear oral mucosa, dentition normal - Neck Neck: Present: supple, normal ROM - Respiratory Respiratory effort: normal Respiratory: bilateral: CTA - Cardiovascular Rhythm: regular Heart Sounds: Present: S1 & S2. Absent: gallop, rub - Extremities Extremities: no ischemia, No edema, Full ROM - Abdominal General gastrointestinal: soft, non-tender, non-distended, normal bowel sounds - Integumentary Integumentary: Present: clear, warm, dry - Neurologic Neurologic: CNII-XII intact, moves all extremities HEART Score - HEART Score Troponin: Troponin T < 0.010 ng/mL (0.00-0.029) 10/02/21 14:03 Results - Labs CBC & Chem 7: 10/03/21 03:48 10/03/21 03:48 Labs: Laboratory Last Values WBC 6.6 K/mm3 (4.5-11.0) 10/03/21 03:48 RBC 3.67 M/mm3 (3.65-5.03) 10/03/21 03:48 Hgb 7.1 gm/dl (11.8-15.2) L 10/03/21 03:48 Hct 24.4 % (35.5-45.6) L 10/03/21 03:48 MCV 67 fl (84-94) L 10/03/21 03:48 MCH 19 pg (28-32) L 10/03/21 03:48 MCHC 29 % (32-34) L 10/03/21 03:48 RDW 19.4 % (13.2-15.2) H 10/03/21 03:48 Plt Count 458 K/mm3 (140-440) H 10/03/21 03:48 Lymph % (Auto) Powerhouse [employer]orer 10/02/21 12:29 Bacon % (Auto) Powerhouse Laborer 10/02/21 12:29 Eos % (Auto) Powerhouse Laborer 10/02/21 12:29 Baso % (Auto) Powerhouse Laborer 10/02/21 12:29 Lymph # (Auto) Powerhouse Laborer 10/02/21 12:29 Bacon # (Auto) Powerhouse Laborer 10/02/21 12:29 Eos # (Auto) Powerhouse Laborer 10/02/21 12:29 Baso # (Auto) Powerhouse Laborer 10/02/21 12:29 Seg Neutrophils % Powerhouse Laborer 10/02/21 12:29 Seg Neutrophils # Powerhouse Laborer 10/02/21 12:29 Sodium 140 mmol/L (137-145) 10/03/21 03:48 Potassium 3.9 mmol/L (3.6-5.0) 10/03/21 03:48 Chloride 102.5 mmol/L (98-107) 10/03/21 03:48 Carbon Dioxide 27 mmol/L (22-30) 10/03/21 03:48 Anion Gap 14 mmol/L 10/03/21 03:48 BUN 16 mg/dL (9-20) 10/03/21 03:48 Creatinine 0.8 mg/dL (0.8-1.3) 10/03/21 03:48 Estimated GFR > 60 ml/min 10/03/21 03:48 BUN/Creatinine Ratio 20 % 10/03/21 03:48 Glucose 105 mg/dL (75-100) H 10/03/21 03:48 Calcium 9.4 mg/dL (8.4-10.2) 10/03/21 03:48 Total Bilirubin 0.40 mg/dL (0.1-1.2) 10/03/21 03:48 Direct Bilirubin < 0.2 mg/dL (0-0.2) 10/02/21 12:29 Indirect Bilirubin 0.3 mg/dL 10/02/21 12:29 AST 9 units/L (5-40) 10/03/21 03:48 ALT < 5 units/L (7-56) L 10/03/21 03:48 Alkaline Phosphatase 67 units/L (35-129) 10/03/21 03:48 Troponin T < 0.010 ng/mL (0.00-0.029) 10/02/21 14:03 Total Protein 7.2 g/dL (6.3-8.2) 10/03/21 03:48 Albumin 4.2 g/dL (3.9-5) 10/03/21 03:48 Albumin/Globulin Ratio 1.4 % 10/03/21 03:48 Lipase 15 units/L (13-60) 10/02/21 12:29 Urine Color Yellow (Yellow) 10/02/21 Unknown Urine Turbidity Clear (Clear) 10/02/21 Unknown Urine pH 5.0 (5.0-7.0) 10/02/21 Unknown Ur Specific [place] 1.015 (1.003-1.030) 10/02/21 Unknown Urine Protein 30 mg/dl mg/dL (Negative) 10/02/21 Unknown Urine Glucose (UA) Negative mg/dL (Negative) 10/02/21 Unknown Urine Ketones Negative mg/dL (Negative) 10/02/21 Unknown Urine Blood Negative (Negative) 10/02/21 Unknown Urine Nitrite Negative (Negative) 10/02/21 Unknown Urine Bilirubin Negative (Negative) 10/02/21 Unknown Urine Urobilinogen 2.0 mg/dL (<2.0) 10/02/21 Unknown Ur Leukocyte Esterase Negative (Negative) 10/02/21 Unknown Urine WBC (Auto) < 1.0 /HPF (0.0-6.0) 10/02/21 Unknown Urine RBC (Auto) < 1.0 /HPF (0.0-6.0) 10/02/21 Unknown Urine Mucus Few /HPF 10/02/21 Unknown Active Medications - Current Medications Current Medications: Generic Name Dose Route Start Last Admin Trade Name Freq PRN Reason Stop Dose Admin Acetaminophen 650 mg 10/03/21 07:30 Acetaminophen 325 Mg Tab PO Q4H PRN Pain MILD(1-3)/Fever >100.5/ELENA Sodium Chloride 1,000 mls @ 125 mls/hr 10/03/21 07:30 Nacl 0.9% 1000 Ml IV DIRECT PETER Magnesium Hydroxide 30 ml 10/03/21 07:30 Magnesium Hydroxide (Mom) Oral Liqd Udc PO Q4H PRN Constipation Morphine Sulfate 2 mg 10/03/21 07:30 Morphine 2 Mg/1 Ml Inj IV Q4H PRN Pain, Moderate (4-6) Morphine Sulfate 4 mg 10/03/21 07:30 Morphine 4 Mg/1 Ml Inj IV Q4H PRN Pain , Severe (7-10) Ondansetron HCl 4 mg 10/03/21 07:30 Ondansetron 4 Mg/2 Ml Inj IV Q8H PRN Nausea And Vomiting Sodium Chloride 10 ml 10/03/21 10:00 Sodium Chloride 0.9% 10 Ml Flush Syringe IV BID PETER Sodium Chloride 10 ml 10/03/21 07:30 Sodium Chloride 0.9% 10 Ml Flush Syringe IV PRN PRN LINE FLUSH
[2021-10-03] MEDS ORDERED: BUPIVACAINE/PF (0.5%) 5 MG/1 ML 30 ML VIAL INFILTRATI ONE (12:13)
[2021-10-03] MEDS ORDERED: LIDOCAINE (1%) 10 MG/1 ML VIAL 20 ML MDV ONE (12:13)
--- NOTE | 2021-10-03 12:55 | Nuclear Medicine Report ---
NUCLEAR MEDICINE HEPATOBILIARY SCAN INDICATION / CLINICAL INFORMATION: Abdominal pain, Cholelithiasis. TECHNIQUE: - Radiotracer: Tc-99m mebrofenin (by IV): 5.5 mCi. - Gallbladder Stimulant: Ensure (8 ounces by mouth) COMPARISON: Abdominal ultrasound dated 10/02/2021 FINDINGS: HEPATIC ACTIVITY: Normal. BILIARY ACTIVITY: Normal. Common bile duct activity at 20 minutes. GALLBLADDER ACTIVITY: Normal at 60 minutes. SMALL BOWEL ACTIVITY: Normal at 20 minutes. GALLBLADDER EJECTION FRACTION % (if calculated): 26 - Normal at 30 min with Cholecystokinin: >35% - Normal at 60 min with Ensure/Glucerna: >33% PATIENT SYMPTOM REPRODUCTION: No symptoms reported.. IMPRESSION: 1. Biliary obstruction: None. 2. Gallbladder ejection fraction: Below normal. Signer Name: Mode Colon DO Signed: 10/03/2021 12:50 PM Workstation Name: [id number]
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
[2021-10-03] MEDS: MORPHINE 2 MG/1 ML INJ IV PRN ×2 (15:54→21:37)
[2021-10-03] MEDS: SODIUM CHLORIDE 0.9% 1000 ML 1,000 ML IV SCH (15:54)
[2021-10-03] MEDS: ONDANSETRON 4 MG/2 ML INJ IV PRN ×2 (17:34→21:37)
[2021-10-04] MEDS: SODIUM CHLORIDE 0.9% 1000 ML 1,000 ML IV SCH ×2 (00:25→09:16)
[2021-10-04] MEDS: MORPHINE 4 MG/1 ML INJ IV PRN ×2 (01:44→06:17)
[2021-10-04 05:26] LABS: Hematocrit 25.5 % (35.5-45.6); Hemoglobin 7.4 gm/dl (11.8-15.2); Mean Corpuscular HGB Conc 29 % (32-34); Mean Corpuscular Volume 66 fl (84-94); Platelet Count 471 K/mm3 (140-440); Red Blood Count 3.88 M/mm3 (3.65-5.03); Red Cell Distribution Width 19.4 % (13.2-15.2)
[2021-10-04 05:43] LABS: BUN/Creatinine Ratio 13; Blood Urea Nitrogen 10 mg/dL (9-20); Calcium 9.5 mg/dL (8.4-10.2); Hemolysis Index 0
[2021-10-04 06:34] LABS: Basophils % (Manual) 0 % (0.0-1.8); Total Cells Counted 100
[2021-10-04 06:35] LABS: Hypochromasia 2+; Platelet Estimate Consistent w Auto
--- NOTE | 2021-10-04 08:58 | Anesthesia Day of Surgery ---
Anesthesia Day of Surgery - Day of Surgery Patient Examined: Yes Patient H&P Reviewed: Yes Patient is NPO: Yes
--- NOTE | 2021-10-04 09:03 | Anesthesia Consultation ---
Anesthesia Consult and Med Hx Date of service: 10/04/21 - Airway Anesthetic Teeth Evaluation: Poor ROM Head & Neck: Adequate Mental/Hyoid Distance: Adequate Mallampati Class: Class III Intubation Access Assessment: Probably Good - Pulmonary Exam CTA: Yes - Cardiac Exam Cardiac Exam: RRR - Pre-Operative Health Status ASA Pre-Surgery Classification: ASA2 Proposed Anesthetic Plan: General - Pulmonary Hx Smoking: Yes Hx Asthma: No COPD: Yes Hx Pneumonia: No - Cardiovascular System Hx Hypertension: No Hx Coronary Artery Disease: No (denies CAD and stents placement) - Central Nervous System CVA: No - Gastrointestinal Hx Ulcer: Yes (h/o peptic ulcer disease.) Hx Gastroesophageal Reflux Disease: Yes - Endocrine Hx Renal Disease: No Hx End Stage Renal Disease: No Hx Liver Disease: No Hx Insulin Dependent Diabetes: No Hx Non-Insulin Dependent Diabetes: No Hx Thyroid Disease: No - Hematic Hx Anemia: Yes (h/o of transfusion in 2021) - Other Systems Hx Obesity: No
[2021-10-04] MEDS: MORPHINE 2 MG/1 ML INJ IV PRN ×2 (09:16→22:16)
--- NOTE | 2021-10-04 09:34 | Progress Note ---
Assessment and Plan Assessment and plan: 61-year-old -[place] male with known history of GI bleed, hypertension, hyperlipidemia, diabetes mellitus, coronary artery disease with stent placement in the past presenting in the emergency room today complaining of abdominal pain. Abdominal pain has been ongoing for the past few weeks but has gotten worse over the last [address] angiogram of the chest shows no acute abnormality. Abdominal ultrasounds reveals cholelithiasis without distinct wall thickening. Nonspecific positive Mcbride sign. Abdominal pain Cholelithiasis Hypertension Diabetes mellitus type 2 History coronary artery disease with stent placement Hyperlipidemia 10/03/2021. We will follow-up HIDA scan. Continue n.p.o. for now. General surgery consultation pending 10/04/2021. HIDA scan revealed mildly decreased gallbladder EF at 26%. No obstruction. Abdominal ultrasound revealed cholelithiasis without cholecystitis or bile duct dilatation. Surgery plans for cholecystectomy this morning. History Interval history: No new issues Hospitalist Physical - Constitutional Vitals: Temp Pulse Resp BP Pulse Ox 97.7 F 72 20 150/76 98 10/03/21 16:23 10/03/21 16:23 10/04/21 09:16 10/03/21 16:23 10/03/21 22:00 General appearance: Present: no acute distress, well-nourished - EENT Eyes: Present: PERRL, EOM intact ENT: hearing intact, clear oral mucosa, dentition normal - Neck Neck: Present: supple, normal ROM - Respiratory Respiratory effort: normal Respiratory: bilateral: CTA - Cardiovascular Rhythm: regular Heart Sounds: Present: S1 & S2. Absent: gallop, rub - Extremities Extremities: no ischemia, No edema, Full ROM - Abdominal General gastrointestinal: soft, non-tender, non-distended, normal bowel sounds - Integumentary Integumentary: Present: clear, warm, dry - Neurologic Neurologic: CNII-XII intact, moves all extremities HEART Score - HEART Score Troponin: Troponin T < 0.010 ng/mL (0.00-0.029) 10/02/21 14:03 Results - Labs CBC & Chem 7: 10/04/21 04:44 10/04/21 04:44 Labs: Laboratory Last Values WBC 6.7 K/mm3 (4.5-11.0) 10/04/21 04:44 RBC 3.88 M/mm3 (3.65-5.03) 10/04/21 04:44 Hgb 7.4 gm/dl (11.8-15.2) L 10/04/21 04:44 Hct 25.5 % (35.5-45.6) L 10/04/21 04:44 MCV 66 fl (84-94) L 10/04/21 04:44 MCH 19 pg (28-32) L 10/04/21 04:44 MCHC 29 % (32-34) L 10/04/21 04:44 RDW 19.4 % (13.2-15.2) H 10/04/21 04:44 Plt Count 471 K/mm3 (140-440) H 10/04/21 04:44 Lymph % (Auto) Rn Hemodialysis 10/02/21 12:29 [place] % (Auto) Rn Hemodialysis 10/02/21 12:29 Eos % (Auto) Rn Hemodialysis 10/02/21 12:29 Baso % (Auto) Rn Hemodialysis 10/02/21 12:29 Lymph # (Auto) Rn Hemodialysis 10/02/21 12:29 [place] # (Auto) Rn Hemodialysis 10/02/21 12:29 Eos # (Auto) Rn Hemodialysis 10/02/21 12:29 Baso # (Auto) Rn Hemodialysis 10/02/21 12:29 Add Manual Diff Complete 10/04/21 04:44 Total Counted 100 10/04/21 04:44 Seg Neutrophils % Rn Hemodialysis 10/02/21 12:29 Seg Neuts % (Manual) 71.0 % (40.0-70.0) H 10/04/21 04:44 Band Neutrophils % 0 % 10/04/21 04:44 Lymphocytes % (Manual) 17.0 % (13.4-35.0) 10/04/21 04:44 Reactive Lymphs % (Man) 0 % 10/04/21 04:44 Monocytes % (Manual) 11.0 % (0.0-7.3) H 10/04/21 04:44 Eosinophils % (Manual) 1.0 % (0.0-4.3) 10/04/21 04:44 Basophils % (Manual) 0 % (0.0-1.8) 10/04/21 04:44 Metamyelocytes % 0 % 10/04/21 04:44 Myelocytes % 0 % 10/04/21 04:44 Promyelocytes % 0 % 10/04/21 04:44 Blast Cells % 0 % 10/04/21 04:44 Nucleated RBC % Not Reportable 10/04/21 04:44 Seg Neutrophils # Rn Hemodialysis 10/02/21 12:29 Seg Neutrophils # Man 4.8 K/mm3 (1.8-7.7) 10/04/21 04:44 Band Neutrophils # 0.0 K/mm3 10/04/21 04:44 Lymphocytes # (Manual) 1.1 K/mm3 (1.2-5.4) L 10/04/21 04:44 Abs React Lymphs (Man) 0.0 K/mm3 10/04/21 04:44 Monocytes # (Manual) 0.7 K/mm3 (0.0-0.8) 10/04/21 04:44 Eosinophils # (Manual) 0.1 K/mm3 (0.0-0.4) 10/04/21 04:44 Basophils # (Manual) 0.0 K/mm3 (0.0-0.1) 10/04/21 04:44 Metamyelocytes # 0.0 K/mm3 10/04/21 04:44 Myelocytes # 0.0 K/mm3 10/04/21 04:44 Promyelocytes # 0.0 K/mm3 10/04/21 04:44 Blast Cells # 0.0 K/mm3 10/04/21 04:44 WBC Morphology Not Reportable 10/04/21 04:44 Hypersegmented Neuts Not Reportable 10/04/21 04:44 Hyposegmented Neuts Not Reportable 10/04/21 04:44 Hypogranular Neuts Not Reportable 10/04/21 04:44 Smudge Cells Not Reportable 10/04/21 04:44 Toxic Granulation Not Reportable 10/04/21 04:44 Toxic Vacuolation Not Reportable 10/04/21 04:44 Dohle Bodies Not Reportable 10/04/21 04:44 Pelger-Huet Anomaly Not Reportable 10/04/21 04:44 Lenny Rods Not Reportable 10/04/21 04:44 Platelet Estimate Consistent w auto 10/04/21 04:44 Clumped Platelets Not Reportable 10/04/21 04:44 Plt Clumps, EDTA Not Reportable 10/04/21 04:44 Large Platelets Not Reportable 10/04/21 04:44 Giant Platelets Not Reportable 10/04/21 04:44 Platelet Satelliting Not Reportable 10/04/21 04:44 Plt Morphology Comment Not Reportable 10/04/21 04:44 RBC Morphology Not Reportable 10/04/21 04:44 Dimorphic RBCs Not Reportable 10/04/21 04:44 Polychromasia Not Reportable 10/04/21 04:44 Hypochromasia 2+ 10/04/21 04:44 Poikilocytosis Not Reportable 10/04/21 04:44 Anisocytosis Not Reportable 10/04/21 04:44 Microcytosis 1+ 10/04/21 04:44 Macrocytosis Not Reportable 10/04/21 04:44 Spherocytes Not Reportable 10/04/21 04:44 Pappenheimer Bodies Not Reportable 10/04/21 04:44 Sickle Cells Not Reportable 10/04/21 04:44 Target Cells Not Reportable 10/04/21 04:44 Tear Drop Cells Not Reportable 10/04/21 04:44 Ovalocytes Not Reportable 10/04/21 04:44 Helmet Cells Not Reportable 10/04/21 04:44 [place] Bodies Not Reportable 10/04/21 04:44 [place] Rings Not Reportable 10/04/21 04:44 Navi Cells Not Reportable 10/04/21 04:44 Bite Cells Not Reportable 10/04/21 04:44 Crenated Cell Not Reportable 10/04/21 04:44 Elliptocytes Not Reportable 10/04/21 04:44 Acanthocytes (Spur) Not Reportable 10/04/21 04:44 Rouleaux Not Reportable 10/04/21 04:44 Hemoglobin C Crystals Not Reportable 10/04/21 04:44 Schistocytes Not Reportable 10/04/21 04:44 Malaria parasites Not Reportable 10/04/21 04:44 Familia Bodies Not Reportable 10/04/21 04:44 Hem Pathologist Commnt No 10/04/21 04:44 Sodium 144 mmol/L (137-145) 10/04/21 04:44 Potassium 3.9 mmol/L (3.6-5.0) 10/04/21 04:44 Chloride 104.7 mmol/L (98-107) 10/04/21 04:44 Carbon Dioxide 30 mmol/L (22-30) 10/04/21 04:44 Anion Gap 13 mmol/L 10/04/21 04:44 BUN 10 mg/dL (9-20) 10/04/21 04:44 Creatinine 0.8 mg/dL (0.8-1.3) 10/04/21 04:44 Estimated GFR > 60 ml/min 10/04/21 04:44 BUN/Creatinine Ratio 13 % 10/04/21 04:44 Glucose 88 mg/dL (75-100) 10/04/21 04:44 POC Glucose 77 mg/dL (70-105) 10/04/21 07:43 Calcium 9.5 mg/dL (8.4-10.2) 10/04/21 04:44 Total Bilirubin 0.40 mg/dL (0.1-1.2) 10/03/21 03:48 Direct Bilirubin < 0.2 mg/dL (0-0.2) 10/02/21 12:29 Indirect Bilirubin 0.3 mg/dL 10/02/21 12:29 AST 9 units/L (5-40) 10/03/21 03:48 ALT < 5 units/L (7-56) L 10/03/21 03:48 Alkaline Phosphatase 67 units/L (35-129) 10/03/21 03:48 Troponin T < 0.010 ng/mL (0.00-0.029) 10/02/21 14:03 Total Protein 7.2 g/dL (6.3-8.2) 10/03/21 03:48 Albumin 4.2 g/dL (3.9-5) 10/03/21 03:48 Albumin/Globulin Ratio 1.4 % 10/03/21 03:48 Lipase 15 units/L (13-60) 10/02/21 12:29 Urine Color Yellow (Yellow) 10/02/21 Unknown Urine Turbidity Clear (Clear) 10/02/21 Unknown Urine pH 5.0 (5.0-7.0) 10/02/21 Unknown Ur Specific [place] 1.015 (1.003-1.030) 10/02/21 Unknown Urine Protein 30 mg/dl mg/dL (Negative) 10/02/21 Unknown Urine Glucose (UA) Negative mg/dL (Negative) 10/02/21 Unknown Urine Ketones Negative mg/dL (Negative) 10/02/21 Unknown Urine Blood Negative (Negative) 10/02/21 Unknown Urine Nitrite Negative (Negative) 10/02/21 Unknown Urine Bilirubin Negative (Negative) 10/02/21 Unknown Urine Urobilinogen 2.0 mg/dL (<2.0) 10/02/21 Unknown Ur Leukocyte Esterase Negative (Negative) 10/02/21 Unknown Urine WBC (Auto) < 1.0 /HPF (0.0-6.0) 10/02/21 Unknown Urine RBC (Auto) < 1.0 /HPF (0.0-6.0) 10/02/21 Unknown Urine Mucus Few /HPF 10/02/21 Unknown Blood Type O POSITIVE 10/03/21 Unknown Antibody Screen Negative 10/03/21 Unknown [place]/IV: Voiding Method Urinal Active Medications - Current Medications Current Medications: Generic Name Dose Route Start Last Admin Trade Name Freq PRN Reason Stop Dose Admin Acetaminophen 650 mg 10/03/21 07:30 Acetaminophen 325 Mg Tab PO Q4H PRN Pain MILD(1-3)/Fever >100.5/ELENA Sodium Chloride 1,000 mls @ 125 mls/hr 10/03/21 07:30 10/04/21 09:16 Nacl 0.9% 1000 Ml IV 125 mls/hr DIRECT PETER Administration Magnesium Hydroxide 30 ml 10/03/21 07:30 Magnesium Hydroxide (Mom) Oral Liqd Udc PO Q4H PRN Constipation Morphine Sulfate 2 mg 10/03/21 07:30 10/04/21 09:16 Morphine 2 Mg/1 Ml Inj IV 2 mg Q4H PRN Administration Pain, Moderate (4-6) Morphine Sulfate 4 mg 10/03/21 07:30 10/04/21 06:17 Morphine 4 Mg/1 Ml Inj IV 4 mg Q4H PRN Administration Pain , Severe (7-10) Ondansetron HCl 4 mg 10/03/21 07:30 10/03/21 21:37 Ondansetron 4 Mg/2 Ml Inj IV 4 mg Q8H PRN Administration Nausea And Vomiting Sodium Chloride 10 ml 10/03/21 10:00 10/04/21 09:17 Sodium Chloride 0.9% 10 Ml Flush Syringe IV 10 ml BID PETER Administration Sodium Chloride 10 ml 07/20/22 07:30 Sodium Chloride 0.9% 10 Ml Flush Syringe IV PRN PRN LINE FLUSH
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
[2021-10-04] MEDS ORDERED: LIDOCAINE (1%) 10 MG/1 ML VIAL 20 ML MDV ONE (12:35)
[2021-10-04] MEDS ORDERED: BUPIVACAINE/PF (0.5%) 5 MG/1 ML 30 ML VIAL INFILTRATI ONE ×2 (12:35→13:33)
[2021-10-04] MEDS ORDERED: ROCURONIUM 50 MG/5 ML INJ IV ONE ×2 (12:40→15:08)
[2021-10-04] MEDS ORDERED: LIDOCAINE MPF (2%) 20 MG/1 ML VIAL 5 ML ONE (12:40)
[2021-10-04] MEDS ORDERED: LACTATED RINGERS 1,000 ML ONE ×2 (12:40→14:39)
[2021-10-04] MEDS ORDERED: fentaNYL 100 MCG/2 ML INJ ONE (12:41)
[2021-10-04] MEDS ORDERED: propofoL 200 MG/20 ML VIAL IV ONE (12:41)
[2021-10-04] MEDS: D5W/0.45% NACL 1,000 ML IV SCH (12:45)
[2021-10-04] MEDS ORDERED: HYDROmorphone 0.5 MG/0.5 ML INJ IV PRN (12:50)
[2021-10-04] MEDS ORDERED: ceFAZolin/STERILE WATER 2 GM/20 ML SYRINGE IV NR (13:00)
[2021-10-04] MEDS ORDERED: ceFAZolin 1 GM VIAL ONE (13:23)
[2021-10-04] MEDS ORDERED: LIDOCAINE (1%) 10 MG/1 ML VIAL 20 ML MDV INFILTRATI ONE (13:33)
[2021-10-04] MEDS ORDERED: WATER FOR IRRIG STERILE 1,500 ML BOTTLE IR ONE (13:33)
[2021-10-04] MEDS ORDERED: SODIUM CHLORIDE 0.9% IRR 1,500 ML BOTTLE IR ONE (13:33)
--- NOTE | 2021-10-04 13:45 | Electrocardiograph Report ---
[facility] Test Date: 2021-10-03 Test Time: 12:43:38 Pat Name: WAI NORWOOD Department: Room: A383 1 Gender: M Nail Specialist: NOHEMY : 1960 Requested By: DAMEON KEMP Order Number: [id number] Reading MD: Howie Novoa Measurements Intervals Fried[place] Rate: 70 P: 77 AL: 120 QRS: 84 QRSD: 91 T: -90 QT: 464 QTc: 501 Interpretive Statements Sinus rhythm Atrial premature complex Borderline T abnormalities, diffuse leads Prolonged QT interval Compared to ECG 12/20/2020 12:38:57 Atrial ectopy is now evident Electronically Signed On 10-04-2021 13:45:05 EDT by Howie Novoa
[2021-10-04] MEDS ORDERED: SODIUM CHLORIDE 0.9% IRRIG SOLN 2000 ML IR ONE (14:02)
[2021-10-04] MEDS ORDERED: HYDROmorphone 1 MG/1 ML INJ ONE (14:22)
[2021-10-04] MEDS ORDERED: SODIUM CHLORIDE 0.9% 100 ML ONE (14:56)
[2021-10-04] MEDS ORDERED: GLYCOPYRROLATE 0.4 MG/2 ML INJ ONE (15:26)
[2021-10-04] MEDS ORDERED: NEOSTIGMINE 10MG/10 ML INJ MDV ONE (15:26)
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
[2021-10-04] MEDS ORDERED: ONDANSETRON 4 MG/2 ML INJ IV PRN (15:59)
--- NOTE | 2021-10-04 18:55 | Fluoroscopy Report ---
INTRAOPERATIVE FLUOROSCOPY: INDICATION / CLINICAL INFORMATION: SYMPTOMATIC CHOLELITHIASIS. TECHNIQUE: Intraoperative spot images were obtained during the procedure. FINDINGS: Intraoperative spot image shows injection of contrast into the gallbladder. Common bile duct is not v isualized on the images obtained. There are multiple metallic shot with project over the right upper quadrant. Fluoroscopy Time: 36 seconds. Fluoroscopy Images: 2. Signer Name: Kartik Rosa MD Signed: 10/04/2021 6:51 PM Workstation Name: [email or web address]
[2021-10-05] MEDS: MORPHINE 2 MG/1 ML INJ IV PRN ×4 (02:09→21:17)
[2021-10-05] MEDS: D5W/0.45% NACL 1,000 ML IV SCH (06:10)
[2021-10-05] MEDS: HYDROcodone/ACETAMINOPHEN 5-325 MG TAB PO PRN (08:41)
--- NOTE | 2021-10-05 08:59 | Discharge Summary ---
Providers - Providers Date of Admission: 10/03/21 06:14 Date of discharge: 10/06/21 Attending physician: NAOMIE MUSA 10/03/21 04:30 Consult to Physician [CONS] Routine Comment: Consulting Provider: YASMINE BENZ Physician Instructions: Reason For Exam: RUQ PAIN; PENDING HIDA SCAN Primary care physician: PRODUCTION QUALITY MANAGER Hospitalization Reason for admission: Abdominal pain Condition: Stable Hospital course: 61-year-old -[place] male with known history of GI bleed, hypertension, hyperlipidemia, diabetes mellitus, coronary artery disease with stent placement in the past presenting in the emergency room complaining of abdominal pain. Abdominal pain has been ongoing for the past few weeks but got worse over the last [address] angiogram of the chest shows no acute abnormality. Abdominal ultrasounds reveals cholelithiasis without distinct wall thickening. Nonspecific positive Mcbride sign. Abdominal pain Cholelithiasis Hypertension Diabetes mellitus type 2 History coronary artery disease with stent placement Hyperlipidemia Hospital course: 10/03/2021. We will follow-up HIDA scan. Continue n.p.o. for now. General surgery consultation pending 10/04/2021. HIDA scan revealed mildly decreased gallbladder EF at 26%. No obstruction. Abdominal ultrasound revealed cholelithiasis without cholecystitis or bile duct dilatation. Surgery plans for cholecystectomy this morning. 10/05/2021. Yesterday, patient underwent laparoscopic cholecystectomy with IOC and also had noted extensive lysis of adhesions. Patient was noted to have chronic calculus cholecystitis as well. Findings included 1. Extensive adhesions from small bowel, colon, omentum, liver to anterior abdominal wall in the midline and bilateral upper quadrants. 2. Distended gallbladder with a stone lodged at the neck of the gallbladder 3. Negative IOC. Surgery felt the patient could be discharged home if tolerating diet well and hemoglobin stable. The patient's hemoglobin today was noted to be 6.4 likely from blood loss with surgery. We will transfuse 1 unit PRBCs and if hemoglobin is greater than 7.0, patient will be discharged home. Dedicated discharge time 32 minutes Disposition: 01 HOME / SELF CARE / HOMELESS Final Discharge Diagnosis (Prints w/discharge instructions): Chronic calculus cholecystitis, intra-abdominal adhesions, s/p laparoscopic cholecystectomy and extensive lysis of adhesions, abdominal pain Core Measure Documentation - Palliative Care Palliative Care/ Comfort Measures: Not Applicable - Core Measures Any of the following diagnoses?: none Exam - Constitutional Vitals: Temp Pulse Resp BP Pulse Ox 99.8 F H 94 H 19 94/62 97 10/05/21 06:05 10/05/21 06:05 10/05/21 06:05 10/05/21 06:05 10/05/21 06:05 General appearance: Present: no acute distress, well-nourished - EENT Eyes: Present: PERRL ENT: hearing intact, clear oral mucosa - Neck Neck: Present: supple, normal ROM - Respiratory Respiratory effort: normal Respiratory: bilateral: CTA - Cardiovascular Heart Sounds: Present: S1 & S2. Absent: rub, click - Extremities Extremities: pulses symmetrical, No edema Peripheral Pulses: within normal limits - Abdominal General gastrointestinal: Present: soft, non-tender, non-distended, normal bowel sounds Male genitourinary: Present: normal - Integumentary Integumentary: Present: clear, warm, dry - Musculoskeletal Musculoskeletal: gait normal, strength equal bilaterally - Psychiatric Psychiatric: appropriate mood/affect, intact judgment & insight - Neurologic Neurologic: CNII-XII intact, moves all extremities Plan Activity: advance as tolerated Weight Bearing Status: Weight Bear as Tolerated Diet: regular Wound: per your surgeon's advice Follow up with: PRIMARY CARE, [Primary Care Provider] - 3-5 Days YASMINE BENZ DO [Staff Physician] - 7 Days Prescriptions: HYDROcodone/APAP 5-325 [[place] 5-325 mg TAB] 1 each PO Q4H PRN #10 tablet PRN Reason: Pain, Moderate (4-6)
[2021-10-05 10:11] LABS: Basophils % (Auto) 0.4 % (0.0-1.8); Eosinophils % (Auto) 0.2 % (0.0-4.3); Hematocrit 21.8 % (35.5-45.6); Hemoglobin 6.4 gm/dl (11.8-15.2); Lymphocytes # (Auto) 0.8 K/mm3 (1.2-5.4); Lymphocytes % (Auto) 10.8 % (13.4-35.0); Mean Corpuscular HGB Conc 29 % (32-34); Monocytes # (Auto) 0.7 K/mm3 (0.0-0.8); Monocytes % (Auto) 9.4 % (0.0-7.3); Platelet Count 381 K/mm3 (140-440); Red Blood Count 3.32 M/mm3 (3.65-5.03); Red Cell Distribution Width 19.3 % (13.2-15.2)
[2021-10-05 10:12] LABS: Mean Corpuscular Volume 66 fl (84-94)
--- NOTE | 2021-10-05 10:28 | Post Anesthesia Evaluation ---
- Post Anesthesia Evaluation Patient Participated: Yes Airway Patent: Yes Stable Respiratory Function: Yes Nausea/Vomiting: No Temp > 96.8F: Yes Pain Manageable: Yes Adequeate Hydration: Yes Anesthesia Complications: No Block Receding Appropriately: Not Applicable Patient on Ventilator: No
[2021-10-05] MEDS ORDERED: SODIUM CHLORIDE 0.9% 500 ML 500 ML IV ONE (11:12)
--- NOTE | 2021-10-05 11:22 | Progress Note ---
Assessment and Plan 61 yo M s/p laparoscopic lysis of adhesions, cholecystectomy, IOC, POD 1 1. chronic cholecystitis 2. chronic anemia HIDA - mildly decreased GB EF @26%. No obstruction Abd u/s - cholelithiasis, without cholecystitis or bile duct dilatation Plan: 1. reg diet 2. dc IVF 3. Transfuse 1 unit PRBC - If hb stabilizes after transfusion, ok to dc in am. 4. repeat H/H tomorrow 5. prn PO pain management 6. IS/pulm toilet 7. OOB/amb 8. DVT ppx D/W Dr. Storm. Thank you, please call with questions. Subjective Date of service: 10/05/21 Narrative: Pt seen and examined. c/o mild incisional pain, well controlled with pain meds. NO n/v. Suzette reg diet. Objective Vital Signs - 12hr 10/05/21 10/05/21 10/05/21 02:09 02:39 06:05 Temperature 99.8 F H Pulse Rate 94 H Respiratory 18 20 19 Rate Blood Pressure 94/62 [Right] O2 Sat by Pulse 97 Oximetry 10/05/21 10:00 Temperature Pulse Rate Respiratory Rate Blood Pressure [Right] O2 Sat by Pulse 96 Oximetry - General physical appearance Narrative Exam: Gen.: Awake, alert, oriented x3. No apparent distress ENT: Trachea midline. No lymphadenopathy. No scleral icterus or conjunctival pallor CV: S1, S2 present Respiratory: No audible wheezes Abdomen: Soft, nondistended. Mild periincisional tenderness. Incisions are clean, dry, intact. No rebound, rigidity, guarding Extremities: No clubbing, cyanosis, edema - Labs 10/05/21 09:39 10/04/21 04:44
--- NOTE | 2021-10-05 12:13 | Progress Note ---
Assessment and Plan Assessment and plan: 61-year-old -Montene[place] male with known history of GI bleed, hypertension, hyperlipidemia, diabetes mellitus, coronary artery disease with stent placement in the past presenting in the emergency room today complaining of abdominal pain. Abdominal pain has been ongoing for the past few weeks but has gotten worse over the last [address] angiogram of the chest shows no acute abnormality. Abdominal ultrasounds reveals cholelithiasis without distinct wall thickening. Nonspecific positive Mcbride sign. Abdominal pain Cholelithiasis Hypertension Diabetes mellitus type 2 History coronary artery disease with stent placement Hyperlipidemia 10/03/2021. We will follow-up HIDA scan. Continue n.p.o. for now. General surgery consultation pending 10/04/2021. HIDA scan revealed mildly decreased gallbladder EF at 26%. No obstruction. Abdominal ultrasound revealed cholelithiasis without cholecystitis or bile duct dilatation. Surgery plans for cholecystectomy this morning. 10/05/2021. Patient with a hemoglobin of 6.4 this morning. We will transfuse 1 unit PRBCs today and likely discharge home in a.m. Etiology likely secondary to chronic anemia. Continue advancing diet and out of bed with ambulation. Pain control and supportive care. History Interval history: No new issues Hospitalist Physical - Constitutional Vitals: Temp Pulse Resp BP Pulse Ox 99.8 F H 94 H 19 94/62 96 10/05/21 06:05 10/05/21 06:05 10/05/21 06:05 10/05/21 06:05 10/05/21 10:00 General appearance: Present: no acute distress, well-nourished - EENT Eyes: Present: PERRL, EOM intact ENT: hearing intact, clear oral mucosa, dentition normal - Neck Neck: Present: supple, normal ROM - Respiratory Respiratory effort: normal Respiratory: bilateral: CTA - Cardiovascular Rhythm: regular Heart Sounds: Present: S1 & S2. Absent: gallop, rub - Extremities Extremities: no ischemia, No edema, Full ROM - Abdominal General gastrointestinal: soft, non-tender, non-distended, normal bowel sounds - Integumentary Integumentary: Present: clear, warm, dry - Neurologic Neurologic: CNII-XII intact, moves all extremities HEART Score - HEART Score Troponin: Troponin T < 0.010 ng/mL (0.00-0.029) 10/02/21 14:03 Results - Labs CBC & Chem 7: 10/05/21 09:39 10/04/21 04:44 Labs: Laboratory Last Values WBC 7.7 K/mm3 (4.5-11.0) 10/05/21 09:39 RBC 3.32 M/mm3 (3.65-5.03) L 10/05/21 09:39 Hgb 6.4 gm/dl (11.8-15.2) L 10/05/21 09:39 Hct 21.8 % (35.5-45.6) L 10/05/21 09:39 MCV 66 fl (84-94) L 10/05/21 09:39 MCH 19 pg (28-32) L 10/05/21 09:39 MCHC 29 % (32-34) L 10/05/21 09:39 RDW 19.3 % (13.2-15.2) H 10/05/21 09:39 Plt Count 381 K/mm3 (140-440) 10/05/21 09:39 Lymph % (Auto) 10.8 % (13.4-35.0) L 10/05/21 09:39 [place] % (Auto) 9.4 % (0.0-7.3) H 10/05/21 09:39 Eos % (Auto) 0.2 % (0.0-4.3) 10/05/21 09:39 Baso % (Auto) 0.4 % (0.0-1.8) 10/05/21 09:39 Lymph # (Auto) 0.8 K/mm3 (1.2-5.4) L 10/05/21 09:39 [place] # (Auto) 0.7 K/mm3 (0.0-0.8) 10/05/21 09:39 Eos # (Auto) 0.0 K/mm3 (0.0-0.4) 10/05/21 09:39 Baso # (Auto) 0.0 K/mm3 (0.0-0.1) 10/05/21 09:39 Add Manual Diff Complete 10/04/21 04:44 Total Counted 100 10/04/21 04:44 Seg Neutrophils % 79.2 % (40.0-70.0) H 10/05/21 09:39 Seg Neuts % (Manual) 71.0 % (40.0-70.0) H 10/04/21 04:44 Band Neutrophils % 0 % 10/04/21 04:44 Lymphocytes % (Manual) 17.0 % (13.4-35.0) 10/04/21 04:44 Reactive Lymphs % (Man) 0 % 10/04/21 04:44 Monocytes % (Manual) 11.0 % (0.0-7.3) H 10/04/21 04:44 Eosinophils % (Manual) 1.0 % (0.0-4.3) 10/04/21 04:44 Basophils % (Manual) 0 % (0.0-1.8) 10/04/21 04:44 Metamyelocytes % 0 % 10/04/21 04:44 Myelocytes % 0 % 10/04/21 04:44 Promyelocytes % 0 % 10/04/21 04:44 Blast Cells % 0 % 10/04/21 04:44 Nucleated RBC % Not Reportable 10/04/21 04:44 Seg Neutrophils # 6.1 K/mm3 (1.8-7.7) 10/05/21 09:39 Seg Neutrophils # Man 4.8 K/mm3 (1.8-7.7) 10/04/21 04:44 Band Neutrophils # 0.0 K/mm3 10/04/21 04:44 Lymphocytes # (Manual) 1.1 K/mm3 (1.2-5.4) L 10/04/21 04:44 Abs React Lymphs (Man) 0.0 K/mm3 10/04/21 04:44 Monocytes # (Manual) 0.7 K/mm3 (0.0-0.8) 10/04/21 04:44 Eosinophils # (Manual) 0.1 K/mm3 (0.0-0.4) 10/04/21 04:44 Basophils # (Manual) 0.0 K/mm3 (0.0-0.1) 10/04/21 04:44 Metamyelocytes # 0.0 K/mm3 10/04/21 04:44 Myelocytes # 0.0 K/mm3 10/04/21 04:44 Promyelocytes # 0.0 K/mm3 10/04/21 04:44 Blast Cells # 0.0 K/mm3 10/04/21 04:44 WBC Morphology Not Reportable 10/04/21 04:44 Hypersegmented Neuts Not Reportable 10/04/21 04:44 Hyposegmented Neuts Not Reportable 10/04/21 04:44 Hypogranular Neuts Not Reportable 10/04/21 04:44 Smudge Cells Not Reportable 10/04/21 04:44 Toxic Granulation Not Reportable 10/04/21 04:44 Toxic Vacuolation Not Reportable 10/04/21 04:44 Dohle Bodies Not Reportable 10/04/21 04:44 Pelger-Huet Anomaly Not Reportable 10/04/21 04:44 Lenny Rods Not Reportable 10/04/21 04:44 Platelet Estimate Consistent w auto 10/04/21 04:44 Clumped Platelets Not Reportable 10/04/21 04:44 Plt Clumps, EDTA Not Reportable 10/04/21 04:44 Large Platelets Not Reportable 10/04/21 04:44 Giant Platelets Not Reportable 10/04/21 04:44 Platelet Satelliting Not Reportable 10/04/21 04:44 Plt Morphology Comment Not Reportable 10/04/21 04:44 RBC Morphology Not Reportable 10/04/21 04:44 Dimorphic RBCs Not Reportable 10/04/21 04:44 Polychromasia Not Reportable 10/04/21 04:44 Hypochromasia 2+ 10/04/21 04:44 Poikilocytosis Not Reportable 10/04/21 04:44 Anisocytosis Not Reportable 10/04/21 04:44 Microcytosis 1+ 10/04/21 04:44 Macrocytosis Not Reportable 10/04/21 04:44 Spherocytes Not Reportable 10/04/21 04:44 Pappenheimer Bodies Not Reportable 10/04/21 04:44 Sickle Cells Not Reportable 10/04/21 04:44 Target Cells Not Reportable 10/04/21 04:44 Tear Drop Cells Not Reportable 10/04/21 04:44 Ovalocytes Not Reportable 10/04/21 04:44 Helmet Cells Not Reportable 10/04/21 04:44 Ern[place] Bodies Not Reportable 10/04/21 04:44 [place] Rings Not Reportable 10/04/21 04:44 [place] Cells Not Reportable 10/04/21 04:44 Bite Cells Not Reportable 10/04/21 04:44 Crenated Cell Not Reportable 10/04/21 04:44 Elliptocytes Not Reportable 10/04/21 04:44 Acanthocytes (Spur) Not Reportable 10/04/21 04:44 Rouleaux Not Reportable 10/04/21 04:44 Hemoglobin C Crystals Not Reportable 10/04/21 04:44 Schistocytes Not Reportable 10/04/21 04:44 Malaria parasites Not Reportable 10/04/21 04:44 Familia Bodies Not Reportable 10/04/21 04:44 Hem Pathologist Commnt No 10/04/21 04:44 Sodium 144 mmol/L (137-145) 10/04/21 04:44 Potassium 3.9 mmol/L (3.6-5.0) 10/04/21 04:44 Chloride 104.7 mmol/L (98-107) 10/04/21 04:44 Carbon Dioxide 30 mmol/L (22-30) 10/04/21 04:44 Anion Gap 13 mmol/L 10/04/21 04:44 BUN 10 mg/dL (9-20) 10/04/21 04:44 Creatinine 0.8 mg/dL (0.8-1.3) 10/04/21 04:44 Estimated GFR > 60 ml/min 10/04/21 04:44 BUN/Creatinine Ratio 13 % 10/04/21 04:44 Glucose 88 mg/dL (75-100) 10/04/21 04:44 POC Glucose 90 mg/dL (70-105) 10/04/21 22:15 Calcium 9.5 mg/dL (8.4-10.2) 10/04/21 04:44 Total Bilirubin 0.40 mg/dL (0.1-1.2) 10/03/21 03:48 Direct Bilirubin < 0.2 mg/dL (0-0.2) 10/02/21 12:29 Indirect Bilirubin 0.3 mg/dL 10/02/21 12:29 AST 9 units/L (5-40) 10/03/21 03:48 ALT < 5 units/L (7-56) L 10/03/21 03:48 Alkaline Phosphatase 67 units/L (35-129) 10/03/21 03:48 Troponin T < 0.010 ng/mL (0.00-0.029) 10/02/21 14:03 Total Protein 7.2 g/dL (6.3-8.2) 10/03/21 03:48 Albumin 4.2 g/dL (3.9-5) 10/03/21 03:48 Albumin/Globulin Ratio 1.4 % 10/03/21 03:48 Lipase 15 units/L (13-60) 10/02/21 12:29 Urine Color Yellow (Yellow) 10/02/21 Unknown Urine Turbidity Clear (Clear) 10/02/21 Unknown Urine pH 5.0 (5.0-7.0) 10/02/21 Unknown Ur Specific [place] 1.015 (1.003-1.030) 10/02/21 Unknown Urine Protein 30 mg/dl mg/dL (Negative) 10/02/21 Unknown Urine Glucose (UA) Negative mg/dL (Negative) 10/02/21 Unknown Urine Ketones Negative mg/dL (Negative) 10/02/21 Unknown Urine Blood Negative (Negative) 10/02/21 Unknown Urine Nitrite Negative (Negative) 10/02/21 Unknown Urine Bilirubin Negative (Negative) 10/02/21 Unknown Urine Urobilinogen 2.0 mg/dL (<2.0) 10/02/21 Unknown Ur Leukocyte Esterase Negative (Negative) 10/02/21 Unknown Urine WBC (Auto) < 1.0 /HPF (0.0-6.0) 10/02/21 Unknown Urine RBC (Auto) < 1.0 /HPF (0.0-6.0) 10/02/21 Unknown Urine Mucus Few /HPF 10/02/21 Unknown Blood Type O POSITIVE 10/03/21 Unknown Antibody Screen Negative 10/03/21 Unknown Crossmatch See Detail 10/03/21 Unknown [place]/IV: Voiding Method Urinal Active Medications - Current Medications Current Medications: Generic Name Dose Route Start Last Admin Trade Name Freq PRN Reason Stop Dose Admin Acetaminophen 650 mg 10/03/21 07:30 Acetaminophen 325 Mg Tab PO Q4H PRN Pain MILD(1-3)/Fever >100.5/ELENA Hydrocodone Bitart/Acetaminophen 1 each 10/04/21 15:34 10/05/21 08:41 Hydrocodone/Acetaminophen 5-325 Mg Tab PO 1 each Q4H PRN Administration Pain, Moderate (4-6) Dextrose/Sodium Chloride 1,000 mls @ 75 mls/hr 10/04/21 11:00 10/05/21 06:10 D5/0.45ns IV 75 mls/hr DIRECT PETER Administration Magnesium Hydroxide 30 ml 10/03/21 07:30 Magnesium Hydroxide (Mom) Oral Liqd Udc PO Q4H PRN Constipation Morphine Sulfate 2 mg 10/03/21 07:30 10/05/21 02:09 Morphine 2 Mg/1 Ml Inj IV 2 mg Q4H PRN Administration Pain , Severe (7-10) Ondansetron HCl 4 mg 10/03/21 07:30 10/03/21 21:37 Ondansetron 4 Mg/2 Ml Inj IV 4 mg Q8H PRN Administration Nausea And Vomiting Sodium Chloride 10 ml 10/03/21 10:00 10/05/21 11:27 Sodium Chloride 0.9% 10 Ml Flush Syringe IV 10 ml BID PETER Administration Sodium Chloride 10 ml 10/03/21 07:30 Sodium Chloride 0.9% 10 Ml Flush Syringe IV PRN PRN LINE FLUSH Nutrition/Malnutrition Assess - Dietary Evaluation Nutrition/Malnutrition Findings: Nutrition Notes Start: 10/04/21 17:23 Freq: Status: Active Protocol: Document 10/04/21 17:23 RUPERT (Rec: 10/04/21 17:45 RUPERT [id number]) Nutrition Notes Need for Assessment generated from: MD Order Initial or Follow up Assessment Current Diagnosis COPD,Coronary Artery Disease, Diabetes,Hypertension, Hyperlipidemia Other Pertinent Diagnosis Abdominal Pain, s/p Cholocystectomy, GERD, Hx GI Bleed. Current Diet GI Soft Diet (from B 10/05). Labs/Tests 10/04: WNL. Pertinent Medications 10/04: D5/0.45ns @ 75 ml/hr, others nutritionally unremarkable. 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 Weight Status Appropriate Subjective/Other Information RD consult for dietary supplementation assessment. Pt's PO intake of meals has been Fair (>50%) well tolerated, according to ADL notes. Pt is on Room Air, O2 saturation @ 95%, according to Physical Assessment History notes. Pt has missing teeth, according to Physical Assessment History notes. Procedure on 10/04 am: Laparoscopic Cholelithiasis with lysis of adhesion, well tolerated, according to Operative Report notes. I will not prescribe dietary supplements to compensate for poor or insufficient PO intake of meals, since is expected that after surgery Pt will recover fast and resume adequate PO intake of meals. Percent of energy/protein needs met: Prescribed GI Soft Diet provides for energy/protein needs (2,000 Kcal/82 g) during LOS. Burn Absent Trauma Absent GI Symptoms None Food Allergy No Skin Integrity/Comment Assessment WNL. Current % PO Fair (50-74%) Minimum of two criteria No Fluid Accumulation N/A Reduced Retail Merchandising Specialist Strength N/A (non-severe) Protein-Calorie Malnutrition N\A #1 Nutrition Diagnosis No nutrition diagnosis at this time Is patient on ventilator? No Is Patient Ambulatory and/or Out of Bed Yes REE-([facility]-ambulatory/OOB) [ 1976.000 [id number]] Kcal/Kg value to use for calculation 33 Approximate Energy Requirements Using 2251 kcal/Kg Calculation Used for Recommendations Kcal/kg Additional Notes Protein: 1.5-2 g/Kg ABW; 102- 136 g/day. Fluids: 1 ml/Kcal, or as per MD. Nutrition Intervention Change Diet Order: Continue GI Soft Diet, eventually, advance to Regular Diet as tolerated. Follow-Up By: 10/11/21 Additional Comments Continue monitoring food tolerance, %PO intake of meals , and BM.
[2021-10-05] MEDS: ONDANSETRON 4 MG/2 ML INJ IV PRN (12:22)
[2021-10-05] MEDS ORDERED: METOCLOPRAMIDE 10 MG/2 ML INJ IV PRN (18:05)
[2021-10-05 21:02] VITALS: BP 141/78
[2021-10-05] MEDS: FAMOTIDINE 20 MG/2 ML INJ IV SCH (21:18)
[2021-10-06 04:52] LABS: Hemoglobin 7.8 gm/dl (11.8-15.2); Mean Corpuscular HGB Conc 30 % (32-34); Mean Corpuscular Volume 70 fl (84-94); Platelet Count 336 K/mm3 (140-440); Red Blood Count 3.71 M/mm3 (3.65-5.03)
[2021-10-06 04:54] LABS: Red Cell Distribution Width 22.9 % (13.2-15.2)
[2021-10-06] MEDS: HYDROcodone/ACETAMINOPHEN 5-325 MG TAB PO PRN (11:39)
[2021-10-06] MEDS: FAMOTIDINE 20 MG/2 ML INJ IV SCH (11:45)
--- NOTE | 2021-10-08 09:56 | Electrocardiograph Report ---
[facility] Test Date: 2021-10-05 Test Time: 17:52:43 Pat Name: WAI NORWOOD Department: Room: A383 1 Gender: M Infrastructure Developer: LILA : 1960 Requested By: NAOMIE MUSA Order Number: [id number] Reading MD: Nestor Santiago Measurements Intervals [place] Rate: 75 P: 74 W[place]: 122 QRS: 75 QRSD: 91 T: 19 QT: 359 QTc: 401 Interpretive Statements Sinus rhythm Compared to ECG 10/03/2021 12:43:38 Atrial premature complex(es) no longer present T-wave abnormality no longer present Prolonged QT interval no longer present Electronically Signed On 10-08-2021 9:56:30 EDT by Nestor Santiago
== END 2021-10-06 12:15 | disposition home or self-care (01) | DRG 419 ==
LOC: ED 12:03 → 3A 10-03 06:14
PROVIDERS: ADMIT Internal Medicine Geriatric Medicine; ATTEND Hospitalist
PROC: 0FT44ZZ Resection of Gallbladder, Percutaneous Endoscopic Approach (ICD-10-PCS; principal; 2021-10-04)
PROC: BF131ZZ Fluoroscopy of Gallbladder and Bile Ducts using Low Osmolar Contrast (ICD-10-PCS; 2021-10-04)
PROC: 0DNW4ZZ Release Peritoneum, Percutaneous Endoscopic Approach (ICD-10-PCS; 2021-10-04)
PROC: 30233N1 Transfusion of Nonautologous Red Blood Cells into Peripheral Vein, Percutaneous Approach (ICD-10-PCS; 2021-10-05)
DX: K80.10 Calculus of gallbladder with chronic cholecystitis without obstruction (principal); K21.9 Gastro-esophageal reflux disease without esophagitis; J44.9 Chronic obstructive pulmonary disease, unspecified; Z87.891 Personal history of nicotine dependence; I10 Essential (primary) hypertension; E78.5 Hyperlipidemia, unspecified; E11.9 Type 2 diabetes mellitus without complications; I25.10 Atherosclerotic heart disease of native coronary artery without angina pectoris; K66.0 Peritoneal adhesions (postprocedural) (postinfection); D64.9 Anemia, unspecified
CPT/HCPCS: 36415; 71275; 74300; 76705; 78227; 80048; 80053; 80076; 81001; 82550; 82553; 82962; 83690; 84484; 85007; 85025; 85027; 86850; 86900; 86901; 86920; 87641; 88304; 93005; G0378; J1815; J3490; J7070; A9537; J0690; J1170; J2270; J2405; J2543; J2704; J2710; J2765; J3010; J7030; J7040; J7120; P9016; Q9967

== ENCOUNTER 2021-10-07 23:28 | Inpatient (IN) | payer SELFPAY ==
[2021-10-08] MEDS ORDERED: SODIUM CHLORIDE 0.9% 1000 ML 1,000 ML IV ONE ×2 (00:58→02:37)
[2021-10-08] MEDS ORDERED: fentaNYL 100 MCG/2 ML INJ IV ONE (00:59)
[2021-10-08] MEDS ORDERED: ONDANSETRON 4 MG/2 ML INJ IV ONE ×2 (01:00→02:37)
[2021-10-08] MEDS ORDERED: MORPHINE 4 MG/1 ML INJ IV ONE ×2 (02:37→07:40)
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
[2021-10-08 03:25] LABS: Hematocrit 26.2 % (35.5-45.6); Hemoglobin 7.9 gm/dl (11.8-15.2); Mean Corpuscular HGB Conc 30 % (32-34); Platelet Count 361 K/mm3 (140-440); Red Blood Count 3.81 M/mm3 (3.65-5.03)
[2021-10-08 03:26] LABS: Mean Corpuscular Volume 69 fl (84-94); Red Cell Distribution Width 23.5 % (13.2-15.2)
[2021-10-08 03:31] LABS: INR 0.92 (0.87-1.13)
[2021-10-08 03:41] LABS: Alanine Aminotransferase 15 units/L (7-56); Albumin 3.6 g/dL (3.9-5); Blood Urea Nitrogen 11 mg/dL (9-20); Calcium 9.1 mg/dL (8.4-10.2); Hemolysis Index 10
[2021-10-08 03:55] LABS: BUN/Creatinine Ratio 16; Bilirubin,Direct < 0.2 mg/dL (0-0.2)
[2021-10-08 04:50] LABS: Bacteria,Urine 1+ /HPF (Negative); Mucus,Urine 2+ /HPF
[2021-10-08 04:51] LABS: Bilirubin,Urine Negative (Negative); Blood,Urine Negative (Negative); Color,Urine Yellow (Yellow); Protein,Urine <15 mg/dL mg/dL (Negative)
[2021-10-08] MEDS ORDERED: ONDANSETRON 4 MG/2 ML INJ ONE (05:02)
[2021-10-08] MEDS ORDERED: MORPHINE 4 MG/1 ML INJ ONE (05:03)
[2021-10-08 05:11] LABS: Total Cells Counted 100
[2021-10-08 05:12] LABS: Anisocytosis 1+; Basophils % (Manual) 0 % (0.0-1.8); Eosinophils % (Manual) 0 % (0.0-4.3); Platelet Estimate Consistent w Auto
[2021-10-08 05:13] LABS: Hypochromasia 1+
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
[2021-10-08] MEDS ORDERED: SODIUM CHLORIDE 0.9% 1000 ML 1,000 ML ONE (08:43)
[2021-10-08] MEDS ORDERED: HYDROmorphone 1 MG/1 ML INJ IV ONE (11:25)
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
[2021-10-08] MEDS ORDERED: HYDROmorphone 0.5 MG/0.5 ML INJ IV PRN ×2 (16:35→20:06)
[2021-10-08] MEDS ORDERED: D5W/0.45% NACL 1,000 ML IV SCH (17:00)
--- NOTE | 2021-10-08 18:45 | Nuclear Medicine Report ---
NUCLEAR MEDICINE HEPATOBILIARY SCAN INDICATION / CLINICAL INFORMATION: s/p cholecystectomy r/o bile leak. TECHNIQUE: Radiotracer: Tc-99m mebrofenin (by IV): 5.5 mCi. COMPARISON: CT same day FINDINGS: In this patient with cholecystectomy, there is no definite radiotracer extending into the post operat marlo bed or into the right lower quadrant. IMPRESSION: No bile leak identified Signer Name: Fuentes Garcia MD Signed: 10/08/2021 6:40 PM Workstation Name: [id number]
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
[2021-10-08] MEDS ORDERED: ACETAMINOPHEN 325 MG TAB PO PRN (19:31)
[2021-10-08] MEDS ORDERED: MORPHINE 2 MG/1 ML INJ IV PRN (19:31)
[2021-10-08] MEDS ORDERED: ONDANSETRON 4 MG/2 ML INJ IV PRN (19:31)
[2021-10-08] MEDS ORDERED: METOCLOPRAMIDE 10 MG/2 ML INJ IV PRN (19:40)
[2021-10-08] MEDS: PANTOPRAZOLE 40 MG INJ IV SCH (19:53)
[2021-10-08] MEDS ORDERED: D5W/0.9% NACL 1,000 ML IV SCH (21:00)
[2021-10-08] MEDS: HEPARIN 5,000 UNIT/1 ML VIAL SUB-Q SCH (22:00)
[2021-10-09 06:59] LABS: Basophils % (Auto) 0.3 % (0.0-1.8); Eosinophils # (Auto) 0.1 K/mm3 (0.0-0.4); Eosinophils % (Auto) 0.7 % (0.0-4.3); Hemoglobin 7.1 gm/dl (11.8-15.2); Lymphocytes % (Auto) 11.7 % (13.4-35.0); Mean Corpuscular HGB Conc 30 % (32-34); Mean Corpuscular Volume 70 fl (84-94); Monocytes # (Auto) 0.8 K/mm3 (0.0-0.8); Monocytes % (Auto) 9.1 % (0.0-7.3); Platelet Count 352 K/mm3 (140-440); Red Blood Count 3.42 M/mm3 (3.65-5.03)
[2021-10-09 07:02] LABS: Red Cell Distribution Width 23.3 % (13.2-15.2)
[2021-10-09 07:26] LABS: Alanine Aminotransferase 10 units/L (7-56); Blood Urea Nitrogen 13 mg/dL (9-20); Calcium 8.8 mg/dL (8.4-10.2); Hemolysis Index 7
[2021-10-09 07:31] LABS: BUN/Creatinine Ratio 22
[2021-10-09] MEDS: HEPARIN 5,000 UNIT/1 ML VIAL SUB-Q SCH (09:04)
[2021-10-09] MEDS: PANTOPRAZOLE 40 MG INJ IV SCH (09:04)
--- NOTE | 2021-10-09 09:38 | Electrocardiograph Report ---
[facility] Test Date: 2021-10-08 Test Time: 04:21:34 Pat Name: WAI NORWOOD Department: Room: A472 Gender: M Junior Automation Engineer: nurse : [id number] Requested By: BENJA ANTONY Order Number: [id number] Reading MD: Nestor Santiago Measurements Intervals [place] Rate: 75 P: 85 OK: 120 QRS: 84 QRSD: 90 T: -78 QT: 367 QTc: 410 Interpretive Statements Sinus rhythm Compared to ECG 10/05/2021 17:52:43 No significant changes Electronically Signed On 10-09-2021 9:38:11 EDT by Nestor Santiago
[2021-10-09] MEDS ORDERED: oxyCODONE /ACETAMINOPHEN 5-325MG TAB PO PRN (11:00)
[2021-10-09] MEDS ORDERED: HYDROmorphone 0.5 MG/0.5 ML INJ IV PRN (11:00)
--- NOTE | 2021-10-09 12:57 | Progress Note ---
Assessment and Plan 61-year-old male with 1. Postop abdominal pain status post left extensive lysis of adhesions, cholecystectomy, IOC on 10/05/2019 2. Postsurgical intra-abdominal fluid collection Pt stable, afebrile. HB at baseline. WBC and lytes ok. Plan: 1. adv to reg diet 2. PRN PO pain control 3. GI ppx 4. OK to dc home tonight if rubin reg diet. 5. Spoke with [facility] outpt pharmacy re: pantoprazole and percocet. Former is covered under [facility] program which the pt was enrolled in. However controlled substance do not fall under the program. 6. Pt instructed to follow up in office in 7-[address] Mccloud. Thank you for this consultation. Please call with any questions or concerns. Subjective Date of service: 10/09/21 Narrative: Pt seen and examined. Pain resolved. No n/v. Rubin CLD and wants to advance. NO f/c. Objective Vital Signs - 12hr 10/09/21 10/09/21 10/09/21 01:01 01:15 01:31 Temperature Pulse Rate 71 72 73 Respiratory 17 13 10 L Rate Blood Pressure 133/82 133/82 133/82 O2 Sat by Pulse 100 96 98 Oximetry 10/09/21 10/09/21 10/09/21 01:45 02:01 02:15 Temperature Pulse Rate 72 70 72 Respiratory 19 14 16 Rate Blood Pressure 133/82 135/75 135/75 O2 Sat by Pulse 89 99 100 Oximetry 10/09/21 10/09/21 10/09/21 02:31 02:45 03:01 Temperature Pulse Rate 72 76 79 Respiratory 12 9 L 16 Rate Blood Pressure 135/75 148/72 148/72 O2 Sat by Pulse 98 99 97 Oximetry 10/09/21 10/09/21 10/09/21 03:15 03:31 03:45 Temperature Pulse Rate 71 71 69 Respiratory 10 L 9 L 9 L Rate Blood Pressure 148/72 148/72 120/72 O2 Sat by Pulse 98 99 99 Oximetry 10/09/21 10/09/21 10/09/21 04:01 04:15 04:31 Temperature Pulse Rate 67 68 67 Respiratory 9 L 10 L 10 L Rate Blood Pressure 120/72 120/72 120/72 O2 Sat by Pulse 99 99 100 Oximetry 10/09/21 10/09/21 10/09/21 04:45 05:01 05:21 Temperature Pulse Rate 71 79 70 Respiratory 11 L 21 20 Rate Blood Pressure 140/82 140/82 140/82 O2 Sat by Pulse 99 100 99 Oximetry 10/09/21 10/09/21 10/09/21 05:39 07:51 12:10 Temperature 98.5 F 97.4 F L 97.7 F Pulse Rate 81 74 74 Respiratory 18 18 18 Rate Blood Pressure 124/79 129/76 129/78 O2 Sat by Pulse 97 100 97 Oximetry - General physical appearance Narrative Exam: Gen.: Awake, alert, oriented x3. No apparent distress ENT: Trachea midline. No lymphadenopathy. No scleral icterus or conjunctival pallor CV: S1, S2 present Respiratory: No audible wheezes Abdomen: Soft, ND, NT,. Incisions c/d/i. No rebound, rigidity, guarding Extremities: No clubbing, cyanosis, edema - Labs 10/09/21 06:31 10/09/21 06:31 Diabetes panel 10/09/21 Range/Units 06:31 Sodium 139 (137-145) mmol/L Potassium 4.0 (3.6-5.0) mmol/L Chloride 106.7 (98-107) mmol/L Carbon Dioxide 23 (22-30) mmol/L BUN 13 (9-20) mg/dL Creatinine 0.6 L (0.8-1.3) mg/dL Glucose 85 (75-100) mg/dL Calcium 8.8 (8.4-10.2) mg/dL AST 12 (5-40) units/L ALT 10 (7-56) units/L Alkaline Phosphatase 52 (35-129) units/L Total Protein 5.9 L (6.3-8.2) g/dL Albumin 3.0 L (3.9-5) g/dL Calcium panel 10/09/21 Range/Units 06:31 Calcium 8.8 (8.4-10.2) mg/dL Albumin 3.0 L (3.9-5) g/dL Pituitary panel 10/09/21 Range/Units 06:31 Sodium 139 (137-145) mmol/L Potassium 4.0 (3.6-5.0) mmol/L Chloride 106.7 (98-107) mmol/L Carbon Dioxide 23 (22-30) mmol/L BUN 13 (9-20) mg/dL Creatinine 0.6 L (0.8-1.3) mg/dL Glucose 85 (75-100) mg/dL Calcium 8.8 (8.4-10.2) mg/dL Adrenal panel 10/09/21 Range/Units 06:31 Sodium 139 (137-145) mmol/L Potassium 4.0 (3.6-5.0) mmol/L Chloride 106.7 (98-107) mmol/L Carbon Dioxide 23 (22-30) mmol/L BUN 13 (9-20) mg/dL Creatinine 0.6 L (0.8-1.3) mg/dL Glucose 85 (75-100) mg/dL Calcium 8.8 (8.4-10.2) mg/dL Total Bilirubin 0.30 (0.1-1.2) mg/dL AST 12 (5-40) units/L ALT 10 (7-56) units/L Alkaline Phosphatase 52 (35-129) units/L Total Protein 5.9 L (6.3-8.2) g/dL Albumin 3.0 L (3.9-5) g/dL
--- NOTE | 2021-10-09 15:22 | Discharge Summary ---
Providers - Providers Date of Admission: 10/08/21 19:31 Date of discharge: 10/09/21 Attending physician: BRUNILDA STEVEN 10/08/21 19:40 Consult to Physician [CONS] Routine Comment: Consulting Provider: YASMINE BENZ Physician Instructions: Reason For Exam: Right upper quadrant pain, abdomen fluid collectio Primary care physician: HEALTH AND SAFETY TRAINER Hospitalization Condition: Stable Hospital course: 61-year-old male who presents with worsening abdominal pain since a's gallbladder was removed on because they 3 days ago. Patient denies any fever or chills. When I asked patient reported that he did not pickup his pain medication prescribed to him on discharged. He has had nausea and non bloody emesis. No other modifying or associated factors reported. Assessment and Plan Advance Directives: Yes (Full code) VTE prophylaxis?: Chemical Plan of care discussed with patient/family: Yes - Patient Problems (1) Postoperative generalized abdominal pain Current Visit: Yes Status: Acute Plan to address problem: There is no bile leak. Possible small hematoma. Will defer to surgery. Pain control. Per surgery 1. Postop abdominal pain status post left extensive lysis of adhesions, cholecystectomy, IOC on 10/05/2019 2. Postsurgical intra-abdominal fluid collection Pt stable, afebrile. HB at baseline. WBC and lytes ok. Plan: 1. adv to reg diet 2. PRN PO pain control 3. GI ppx 4. OK to dc home tonight if rubin reg diet. 5. Spoke with [facility] outpt pharmacy re: pantoprazole and percocet. Former is covered under [facility] program which the pt was enrolled in. However controlled substance do not fall under the program. 6. Pt instructed to follow up in office in 7-10 days. (2) S/P laparoscopic cholecystectomy Current Visit: Yes Status: Acute Plan to address problem: Cholecystectomy done 3 days ago. Moderate fluid collection in the cholecystectomy site. Pain management. Possible conservative treatment. Will defer to surgery. 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 Accu-Cheks every 6 hours (4) GERD (gastroesophageal reflux disease) Current Visit: Yes Status: Acute Qualifiers: Esophagitis presence: without esophagitis Qualified Code(s): K21.9 - Gastro-esophageal reflux disease without esophagitis Plan to address problem: IV Protonix (5) COPD (chronic obstructive pulmonary disease) Current Visit: Yes Status: Chronic Qualifiers: Emphysema type: unspecified Plan to address problem: DuoNebs as needed (6) DVT prophylaxis Current Visit: Yes Status: Acute Plan to address problem: On anticoagulation GI prophylaxis (7) Advance care planning Current Visit: Yes Status: Acute Plan to address problem: Disease education conducted, care plan discussed, diagnosis discussed, prognosis discussed. Patient acknowledges understanding with care plan respiratory minutes. Disposition: HOME / SELF CARE / HOMELESS Final Discharge Diagnosis (Prints w/discharge instructions): Open box. Intra- abdominal fluid collection. Status postcholecystectomy. 32 DM. GERD. COPD. Advance care planning Time spent for discharge: 35 minutes - Discharge Diagnoses (1) Postoperative generalized abdominal pain Status: Acute (2) S/P laparoscopic cholecystectomy Status: Acute (3) T2DM (type 2 diabetes mellitus) Status: Chronic Qualifiers: Diabetes mellitus assisted insulin use: unspecified assisted insulin use status (4) GERD (gastroesophageal reflux disease) Status: Acute Qualifiers: Esophagitis presence: without esophagitis Qualified Code(s): K21.9 - Gastro-esophageal reflux disease without esophagitis (5) COPD (chronic obstructive pulmonary disease) Status: Chronic Qualifiers: Emphysema type: unspecified (6) DVT prophylaxis Status: Acute (7) Advance care planning Status: Acute Core Measure Documentation - Palliative Care Palliative Care/ Comfort Measures: Not Applicable - Core Measures Any of the following diagnoses?: none Exam - Constitutional Vitals: Temp Pulse Resp BP Pulse Ox 97.7 F 74 18 129/78 97 10/09/21 12:10 10/09/21 12:10 10/09/21 12:10 10/09/21 12:10 10/09/21 12:10 General appearance: Present: no acute distress, well-nourished - EENT Eyes: Present: PERRL ENT: hearing intact, clear oral mucosa - Neck Neck: Present: supple, normal ROM - Respiratory Respiratory effort: normal Respiratory: bilateral: CTA - Cardiovascular Heart rate: 78 Rhythm: regular Heart Sounds: Present: S1 & S2. Absent: rub, click - Extremities Extremities: pulses symmetrical, No edema Peripheral Pulses: within normal limits - Abdominal General gastrointestinal: Present: soft, non-tender, non-distended, normal bowel sounds Male genitourinary: Present: normal - Integumentary Integumentary: Present: clear, warm, dry - Musculoskeletal Musculoskeletal: gait normal, strength equal bilaterally - Psychiatric Psychiatric: appropriate mood/affect, intact judgment & insight - Neurologic Neurologic: CNII-XII intact, moves all extremities - Allied Health Allied health notes reviewed: nursing, case management Plan Activity: no restrictions Diet: advance as tolerated Follow up with: YASMINE BENZ DO [Staff Physician] - 10 Days PRIMARY CARE, [Primary Care Provider] - 3-5 Days Prescriptions: oxyCODONE /ACETAMINOPHEN [Percocet 5/325] 1 tab PO Q6HR PRN #10 tablet PRN Reason: Pain , Severe (7-10) Pantoprazole [Protonix TAB] 40 mg PO QDAY #30 tablet
[2021-10-09 16:42] VITALS: BP 109/69
[2021-10-11] MEDS ORDERED: METOCLOPRAMIDE 10 MG/2 ML INJ IV PRN (19:03)
[2021-10-11] MEDS ORDERED: MORPHINE 2 MG/1 ML INJ IV PRN (19:03)
[2021-10-11] MEDS ORDERED: ACETAMINOPHEN 325 MG TAB PO PRN (19:03)
[2021-10-11] MEDS ORDERED: ONDANSETRON 4 MG/2 ML INJ IV PRN (19:03)
[2021-10-11] MEDS ORDERED: SODIUM CHLORIDE 0.9% 1000 ML 1,000 ML IV SCH (19:15)
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
[2021-10-11] MEDS ORDERED: PIPERACIL/TAZOBACTA 4.5/NS 100 4.5 GM/100 ML VIAL IV SCH (22:00)
== END 2021-10-09 17:31 | disposition home or self-care (01) | DRG 948 ==
LOC: ED 23:28 → 3A 10-08 19:31 → 4A 10-08 23:35
PROVIDERS: ADMIT Internal Medicine; ATTEND Internal Medicine
DX: G89.18 Other acute postprocedural pain (principal); K21.9 Gastro-esophageal reflux disease without esophagitis; E11.9 Type 2 diabetes mellitus without complications; J44.9 Chronic obstructive pulmonary disease, unspecified; Z90.49 Acquired absence of other specified parts of digestive tract; F17.200 Nicotine dependence, unspecified, uncomplicated
CPT/HCPCS: 36415; 74177; 78226; 80048; 80053; 80076; 81001; 83690; 85007; 85025; 85610; 93005; G0378; J3490; J7070; A9537; C9113; J1170; J1644; J2270; J2405; J3010; J7030; J7042; Q9967

== ENCOUNTER 2021-10-11 05:46 | Observation (INO) | payer SELFPAY ==
[2021-10-11] MEDS ORDERED: MORPHINE 4 MG/1 ML INJ IV ONE (08:14)
[2021-10-11] MEDS ORDERED: SODIUM CHLORIDE 0.9% 1000 ML 1,000 ML IV ONE (08:14)
[2021-10-11] MEDS ORDERED: ONDANSETRON 4 MG/2 ML INJ IV ONE (08:14)
[2021-10-11 09:59] LABS: Red Blood Count 3.44 M/mm3 (3.65-5.03)
[2021-10-11 10:00] LABS: Basophils % (Auto) 0.9 % (0.0-1.8); Blood Urea Nitrogen 9 mg/dL (9-20); Eosinophils % (Auto) 0.4 % (0.0-4.3); Hematocrit 24.2 % (35.5-45.6); Hemoglobin 7.1 gm/dl (11.8-15.2); Hemolysis Index 7; Lymphocytes # (Auto) 0.8 K/mm3 (1.2-5.4); Lymphocytes % (Auto) 7.7 % (13.4-35.0); Mean Corpuscular HGB Conc 29 % (32-34); Mean Corpuscular Volume 70 fl (84-94); Mean Platelet Volume 7.6 fl (6-12); Monocytes % (Auto) 6.2 % (0.0-7.3); Platelet Count 316 K/mm3 (140-440); Red Cell Distribution Width 23.5 % (13.2-15.2)
[2021-10-11 10:01] LABS: Basophils # (Auto) 0.1 K/mm3 (0.0-0.1); Monocytes # (Auto) 0.7 K/mm3 (0.0-0.8)
[2021-10-11 10:31] LABS: BUN/Creatinine Ratio 15
[2021-10-11 12:02] LABS: Color,Urine Yellow (Yellow); Hyaline Casts,Urine 1 /LPF; Mucus,Urine FEW /HPF; WBC,Urine < 1.0 /HPF (0.0-6.0)
[2021-10-11 12:05] LABS: Bilirubin,Urine Small (Negative); Blood,Urine Negative (Negative)
[2021-10-11 12:06] LABS: Ictotest,Urine Positive (Negative); Urobilinogen,Urine > 2.0 mg/dL (<2.0)
--- NOTE | 2021-10-11 12:16 | Cat Scan Report ---
CT ABDOMEN AND PELVIS WITH CONTRAST INDICATION / CLINICAL INFORMATION: Right flank pain radiating to the back for 3 days. Status post cholecystectomy. TECHNIQUE: Axial CT images were obtained through the abdomen and pelvis after 100 cc Omnipaque [address] scans at this location are performed using CT dose reduction for ALARA by means of automated exposure control. COMPARISON: HIDA scan and CT abdomen and pelvis with contrast from 10/08/2021. FINDINGS: LOWER CHEST: No significant abnormality. LIVER: Multiple hepatic cysts are again seen. [place] is again noted throughout the right upper quad rant and elsewhere along the right abdomen. No new significant abnormality. GALLBLADDER: There is an unchanged gallbladder fossa fluid collection containing scattered foci of ga s measuring up to 7.5 cm on image 37 of the coronal series, previously 7.7 cm. No new significant abn ormality. BILE DUCTS: No significant abnormality. PANCREAS: No significant abnormality. SPLEEN: No significant abnormality. ADRENALS: No significant abnormality. RIGHT KIDNEY/URETER: No significant abnormality. LEFT KIDNEY/URETER: No significant abnormality. STOMACH/SMALL BOWEL: Previously seen small bowel dilatation has improved. Previously reported right l ower quadrant pneumatosis is not identified. No new acute findings. COLON: No significant abnormality. APPENDIX: No significant abnormality. PERITONEUM: A small amount of free fluid is again seen dependently along the pelvis. No significant f ree fluid elsewhere. Previously seen free air has improved. No other organized fluid collection is id entified. LYMPH NODES: No significant adenopathy. VASCULATURE: There is unchanged mild atherosclerosis. No any significant abnormality. URINARY BLADDER: Underdistended with likely secondary wall thickening. No other significant abnormali ty. REPRODUCTIVE ORGANS: No significant abnormality. ADDITIONAL FINDINGS: None. BONES: No significant abnormality IMPRESSION: 1. Unchanged gallbladder fossa fluid collection is nonspecific and could represent a biloma or absces s. 2. No new acute findings. 3. Additional findings as above. Signer Name: Jatinder Abraham MD Signed: 10/11/2021 12:12 PM Workstation Name: [id number]
[2021-10-11] MEDS ORDERED: PIPERACILLIN/TAZOBACTAM 3.375 3.375 GM/50 ML BAG IV ONE (12:46)
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
[2021-10-11 14:37] LABS: INR 0.86 (0.87-1.13)
[2021-10-11] MEDS ORDERED: HYDROmorphone 0.5 MG/0.5 ML INJ IV PRN (21:05)
[2021-10-11] MEDS ORDERED: ACETAMINOPHEN 325 MG TAB PO PRN (21:05)
[2021-10-11] MEDS ORDERED: ONDANSETRON 4 MG/2 ML INJ IV PRN (21:05)
[2021-10-11] MEDS ORDERED: METOCLOPRAMIDE 10 MG/2 ML INJ IV PRN (21:05)
[2021-10-11] MEDS ORDERED: MORPHINE 2 MG/1 ML INJ IV PRN (21:05)
[2021-10-11] MEDS ORDERED: SODIUM CHLORIDE 0.9% 1000 ML 1,000 ML IV SCH (21:15)
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
[2021-10-11] MEDS ORDERED: FAMOTIDINE 20 MG/2 ML INJ IV SCH (22:00)
[2021-10-11] MEDS: CEFEPIME/NS 2 GM/100 ML 2 GM/100 ML BAG IV SCH (23:37)
[2021-10-11] MEDS: HEPARIN 5,000 UNIT/1 ML VIAL SUB-Q SCH (23:37)
[2021-10-12] MEDS: CEFEPIME/NS 2 GM/100 ML 2 GM/100 ML BAG IV SCH (05:11)
--- NOTE | 2021-10-12 09:43 | Progress Note ---
Assessment and Plan Assessment and Plan - Patient Problems (1) Postoperative generalized abdominal pain Status: Acute Plan to address problem: Fluid collection in the right upper quadrant May need interventional radiology/vascular for drainage of the fluid collection Recurrent admissions because of the right upper quadrant pain (2) S/P laparoscopic cholecystectomy Status: Acute Plan to address problem: Cholecystectomy done 5 days ago. Moderate fluid collection in the cholecystectomy site. Pain management. Possible conservative treatment. Will defer to surgery. (3) T2DM (type 2 diabetes mellitus) Status: Chronic Qualifiers: Diabetes mellitus intermediate insulin use: unspecified intermediate insulin use s tatus Plan to address problem: Coverage for now with the regular insulin. Accu-Cheks every 6 hours (4) GERD (gastroesophageal reflux disease) Status: Acute Qualifiers: Esophagitis presence: without esophagitis Qualified Code(s): K21.9 - Gastro-esophageal reflux disease without esophagitis Plan to address problem: IV Protonix (5) COPD (chronic obstructive pulmonary disease) Status: Chronic Qualifiers: Emphysema type: unspecified Plan to address problem: DuoNebs as needed (6) DVT prophylaxis Status: Acute Plan to address problem: On anticoagulation GI prophylaxis (7) Advance care planning Status: Acute Plan to address problem: Disease education conducted, care plan discussed, diagnosis discussed, prognosis discussed. Patient acknowledges understanding with care plan respiratory minutes. Subjective Date of service: 10/12/21 Objective - Constitutional Vitals: Vital Signs - 12hr 10/12/21 10/12/21 10/12/21 03:01 04:05 05:00 Temperature 98.1 F Pulse Rate 76 77 Respiratory 18 20 Rate Blood Pressure 136/74 108/59 [Right] O2 Sat by Pulse 98 96 96 Oximetry General appearance: Present: no acute distress, well-nourished - EENT Eyes: PERRL, EOM intact ENT: hearing intact, clear oral mucosa Ears: bilateral: normal - Neck Neck: supple, normal ROM - Respiratory Respiratory effort: normal Respiratory: bilateral: CTA - Breasts Breasts: normal - Cardiovascular Rhythm: regular Heart Sounds: Present: S1 & S2. Absent: gallop, rub Extremities: pulses intact, No edema, normal color, Full ROM - Gastrointestinal General gastrointestinal: Present: soft, non-tender, non-distended, normal bowel sounds - Genitourinary Male genitourinary: normal - Integumentary Integumentary: clear, warm, dry - Musculoskeletal Musculoskeletal: 1, strength equal bilaterally - Neurologic Neurologic: moves all extremities - Psychiatric Psychiatric: memory intact, appropriate mood/affect, intact judgment & insight - Labs CBC & Chem 7: 10/11/21 08:29 10/11/21 08:29 Labs: Abnormal lab results 10/11/21 10/11/21 10/11/21 Range/Units 08: 08:29 14:00 WBC 11.8 H (4.5-11.0) K/mm3 RBC 3.44 L (3.65-5.03) M/mm3 Hgb 7.1 L (11.8-15.2) gm/dl Hct 24.2 L (35.5-45.6) % MCV 70 L (84-94) fl MCH 21 L (28-32) pg MCHC 29 L (32-34) % RDW 23.5 H (13.2-15.2) % Lymph % (Auto) 7.7 L (13.4-35.0) % Lymph # (Auto) 0.8 L (1.2-5.4) K/mm3 Seg Neutrophils % 84.8 H (40.0-70.0) % Seg Neutrophils # 9.3 H (1.8-7.7) K/mm3 INR 0.86 L (0.87-1.13) Chloride 108.3 H (98-107) mmol/L Creatinine 0.6 L (0.8-1.3) mg/dL
[2021-10-12] MEDS: HEPARIN 5,000 UNIT/1 ML VIAL SUB-Q SCH (09:46)
[2021-10-12] MEDS ORDERED: MIDAZOLAM 5 MG/5 ML INJ MDV IV SCH (10:00)
[2021-10-12] MEDS ORDERED: fentaNYL 100 MCG/2 ML INJ IV SCH (10:00)
[2021-10-12] MEDS ORDERED: fentaNYL 100 MCG/2 ML INJ ONE (10:57)
[2021-10-12] MEDS ORDERED: MIDAZOLAM 5 MG/5 ML INJ MDV IV ONE (10:57)
[2021-10-12] MEDS ORDERED: SODIUM CHLORIDE 0.9% 500 ML 500 ML ONE (11:04)
--- NOTE | 2021-10-12 11:55 | Progress Note ---
Assessment and Plan 61 yo M 1. Postsurgical intra-abdominal fluid collection 2. Post op abd pain 3. Status post laparoscopic extensive lysis of adhesions, cholecystectomy, IOC on 10/05/2019 Pt stable, afebrile. Plan: 1. NPO for now for procedure, may have regular diet after procedure 2. DC IV fluid 3. empriric IV abx 4. GI and DVT ppx 5. IS/pulm toilet 6. Prn pain and nausea control 7. For CT-guided drainage of right upper quadrant post operative fluid collection with Dr. Kaufman today. Discussed with Dr. Kaufman. If bile or purulent fluid encountered, will leave indwelling drain. 8. If aspirated fluid is serous or serosanguineous, the patient may be discharged home later today. Further recommendations pending CT-guided drainage of fluid collection. Thank you for this consultation. Please call with any questions or concerns. Subjective Date of service: 10/12/21 Narrative: Patient seen and examined. He has no complaints. His pain is resolved after receiving pain medication. Tolerating diet without nausea or vomiting. Afebrile. N.p.o. today for procedure Objective Vital Signs - 12hr 10/12/21 10/12/21 10/12/21 03:01 04:05 05:00 Temperature 98.1 F Pulse Rate 76 77 Respiratory 18 20 Rate Blood Pressure 136/74 108/59 [Right] O2 Sat by Pulse 98 96 96 Oximetry - General physical appearance Narrative Exam: Gen: AAOx3. NAD. Comfortable in bed. ENT: no scleral icterus or conjunctival pallor CV: S1, S2+ Resp: even and unlabored Abd: soft, NT, ND. no r/r/g. Incisions c/d/i Ext: trace pedal edema - Labs 10/11/21 08:29 10/11/21 08:29
--- NOTE | 2021-10-12 12:13 | Operative Report ---
Operative Report Operative Report: Exam: CT-guided aspiration of gallbladder fossa fluid collection Clinical indication: Patient with a history of cholecystectomy and abdominal pain. CT demonstrates fluid collection within the gallbladder fossa. Date: 10/12/2021 Procedure: Following an explanation of the risk, benefits and alternatives; [place] informed consent was obtained. The patient was brought to the CT suite and placed in supine position on the gantry. Initial civil drafting technician images of the abdomen were performed and appropriate access site to the fluid collection was chosen of the right upper quadrant. The patient's right upper abdomen was prepped and draped in the usual sterile fashion. 2% lidocaine was used for anesthesia. Using intermittent CT guidance, a 15 cm 18-gauge trocar needle was advanced into the central aspect of the fluid collection. There is prompt return of serous fluid with sanguinous component consistent with degenerating hematoma. A total of 40 mL of fluid was aspirated. Sample sent for laboratory analysis. Post procedure imaging demonstrated appropriate positioning of the needle and decrease in size of the fluid collection. The needle was removed and hemostasis achieved using manual compression. A sterile dressing was applied. The patient tolerated the procedure well. There were no immediate postprocedure complications. Conscious sedation was performed under the guidance of radiologic nursing. Continuous cardiopulmonary monitoring was utilized. Impression: CT-guided aspiration of gallbladder fossa fluid collection demonstrating 40 mL of predominantly serous fluid with a sanguinous component consistent with some degree of degenerating hematoma. A sample was sent for laboratory analysis.
[2021-10-12 12:55] VITALS: BP 128/69
--- NOTE | 2021-10-12 15:31 | Discharge Summary ---
Providers - Providers Date of Admission: 10/11/21 21:05 Date of discharge: 10/12/21 Attending physician: BRUNILDA STEVEN 10/11/21 12:49 Consult to Interventional Radiology [CONS] Routine Consulting Provider: LUIS JONES Reason For Exam: post cholecystectomy fluid collection, pain Notified:: n/a 10/11/21 21:05 Consult to Physician [CONS] Routine Comment: Consulting Provider: YASMINE BENZ Physician Instructions: Reason For Exam: Right upper quadrant pain 10/11/21 21:14 Consult to Physician [CONS] Routine Comment: Consulting Provider: LUIS GOLDSTEIN Physician Instructions: Recurrent admissions for s/p cholecystectomy Reason For Exam: Right upper quadrant fluid collection Primary care physician: CLINT LOPEZ Hospitalization Condition: Stable Procedures: Fluid aspiration from right upper quadrant region by IR Using intermittent CT guidance, a 15 cm 18-gauge trocar needle was advanced into the central aspect of the fluid collection. There is prompt return of serous fluid with sanguinous component consistent with degenerating hematoma. A total of 40 mL of fluid was aspirated. Sample sent for laboratory analysis. Post procedure imaging demonstrated appropriate positioning of the needle and decrease in size of the fluid collection. The needle was removed and hemostasis achieved using manual compression. A sterile dressing was applied. Hospital course: 61-year-old -[place] male with past medical history significant for GERD, T2DM and COPD was first admitted on 10/03/2021 for cholelithiasis and right upper quadrant pain. Patient had a cholecystectomy around 10/04/2021 and was discharged on 10/05/2021. Postop patient did well for 1 day and then started having pain for about 2 days for which patient was admitted on the 10/08/2021. Patient had a fluid collection near the cholecystectomy site. Patient was treated conservatively and surgical consult was obtained. Surgery cleared him for discharge. At the time of discharge patient did not have any pain for 12 to 24 hours. Patient was discharged on Percocet 5/325 twice a day and Protonix. Patient comes back after 48 hours to the emergency room for the same complaint of right upper quadrant pain. CT of the abdomen was done which showed Unchanged gallbladder fossa fluid collection is nonspecific and could represent a biloma or abscess No acute findings Assessment and Plan - Patient Problems (1) Postoperative generalized abdominal pain Status: Acute Plan to address problem: Fluid collection in the right upper quadrant was examined by interventional radiology Serosanguineous fluid Sent for culture (2) S/P laparoscopic cholecystectomy Status: Acute Plan to address problem: 40 mL of serosanguineous fluid withdrawn. CT-guided 15 cm 18 gauze needle (3) T2DM (type 2 diabetes mellitus) Status: Chronic Qualifiers: Diabetes mellitus terminologist insulin use: unspecified assisted insulin use status Plan to address problem: Coverage for now with the regular insulin. Accu-Cheks every 6 hours (4) GERD (gastroesophageal reflux disease) Status: Acute Qualifiers: Esophagitis presence: without esophagitis Qualified Code(s): K21.9 - Gastro-esophageal reflux disease without esophagitis Plan to address problem: IV Protonix (5) COPD (chronic obstructive pulmonary disease) Status: Chronic Qualifiers: Emphysema type: unspecified Plan to address problem: DuoNebs as needed (6) DVT prophylaxis Status: Acute Plan to address problem: On anticoagulation GI prophylaxis (7) Advance care planning Status: Acute Plan to address problem: Disease education conducted, care plan discussed, diagnosis discussed, prognosis discussed. Patient acknowledges understanding with care plan respiratory minutes. Advance Directives: Yes (Full code) VTE prophylaxis?: Chemical Plan of care discussed with patient/family: Yes Disposition: 01 HOME / SELF CARE / HOMELESS Final Discharge Diagnosis (Prints w/discharge instructions): Right upper quadrant hematoma. Postoperative generalized abdominal pain. GERD. COPD Time spent for discharge: 35 minutes - Discharge Diagnoses (1) Postoperative generalized abdominal pain Status: Acute (2) S/P laparoscopic cholecystectomy Status: Acute (3) DVT prophylaxis Status: Acute Core Measure Documentation - Palliative Care Palliative Care/ Comfort Measures: Not Applicable - Core Measures Any of the following diagnoses?: none Exam - Constitutional Vitals: Temp Pulse Resp BP Pulse Ox 98.1 F 61 17 128/69 100 10/12/21 04:05 10/12/21 12:20 10/12/21 12:20 10/12/21 12:20 10/12/21 12:20 General appearance: Present: no acute distress, well-nourished - EENT Eyes: Present: PERRL ENT: hearing intact, clear oral mucosa - Neck Neck: Present: supple, normal ROM - Respiratory Respiratory effort: normal Respiratory: bilateral: CTA - Cardiovascular Heart rate: 78 Rhythm: regular Heart Sounds: Present: S1 & S2. Absent: rub, click - Extremities Extremities: pulses symmetrical, No edema Peripheral Pulses: within normal limits - Abdominal General gastrointestinal: Present: soft, non-tender, non-distended, normal bowel sounds Male genitourinary: Present: normal - Integumentary Integumentary: Present: clear, warm, dry - Musculoskeletal Musculoskeletal: gait normal, strength equal bilaterally - Psychiatric Psychiatric: appropriate mood/affect, intact judgment & insight - Neurologic Neurologic: CNII-XII intact, moves all extremities Plan Activity: no restrictions Diet: advance as tolerated Follow up with: YASMINE BENZ DO [Staff Physician] - 7 Days
--- NOTE | 2021-10-16 09:58 | Cat Scan Report ---
CT-guided cholecystostomy tube placement INDICATION : post cholecystectomy fluid collection. COMPARISON: CT abdomen/pelvis from the previous day IMPRESSION: This procedure was performed by Dr. Kaufman. Please refer to his operative note for compl ete details. Signer Name: Deric Morales MD Signed: 10/16/2021 9:54 AM Workstation Name: [id number]
== END 2021-10-12 18:52 | disposition home or self-care (01) ==
LOC: ED 05:46 → 3A 21:05 → INTOOBSV 21:05 → 3A 23:38
PROVIDERS: ADMIT Internal Medicine; ATTEND Internal Medicine
DX: G89.18 Other acute postprocedural pain (principal); R10.11 Right upper quadrant pain; E11.9 Type 2 diabetes mellitus without complications; K21.9 Gastro-esophageal reflux disease without esophagitis; J44.9 Chronic obstructive pulmonary disease, unspecified; F17.200 Nicotine dependence, unspecified, uncomplicated; Z79.899 Other long term (current) drug therapy; Z90.49 Acquired absence of other specified parts of digestive tract; Z98.890 Other specified postprocedural states
CPT/HCPCS: 10160; 36415; 74177; 77012; 80048; 81001; 82150; 83690; 85025; 85610; 87116; 96365; 96366; 96367; 96372; 96375; 96376; 99285; G0378; J0692; J1644; J2250; J2270; J2405; J2543; J3010; J3490; J7030; J7040; Q9967